=== PATIENT | male | born 1935 | race Hispanic/Latino ===

== ENCOUNTER 2017-05-26 10:50 | Inpatient (IN) | payer MEDICARE, BC ==
[2017-05-26] MEDS ORDERED: Ondansetron ODT 4 MG TAB ONE (11:22)
[2017-05-26] MEDS ORDERED: Acetaminophen 500 MG TAB ONE (11:56)
[2017-05-26 12:35] LABS: Bilirubin Negative (Negative); Blood, Urine Small (Negative); Clarity Clear (Clear); Glucose, Urine (Dipstick) 100 mg/dL (Negative); Leukocyte Negative (Negative); Nitrite Negative (Negative); Protein, Urine (Dipstick) Negative (Neg-Trace); Specific Gravity, Urine 1.025 (1.005-1.030); Urobilinogen 0.2 mg/dL (0.2-1.0); pH, Urine 5.5 (5.0-9.0)
[2017-05-26 12:39] LABS: #Basophils 0.1 thou/uL (0.0-0.2); #Eosinphils 0.3 thou/uL (0.0-0.7); #Lymphocytes 2.2 thou/uL (1.20-3.40); #Neutrophils 14.2 thou/uL (1.40-6.50); %Basophils 0.7 % (0.0-1.0); %Eosinophils 1.6 % (0.0-10.0); %Lymphocytes 12.2 % (21.0-51.0); %Monocytes 5.6 % (0.0-10.0); Hemoglobin 15.1 g/dL (14.0-18.0); Mean Corpuscular HGB CONC 34.3 g/dL (32.0-36.0); Mean Corpuscular Hemoglobin 30.9 pg (27.0-31.0); Mean Platelet Volume 6.6 fL (7.4-10.4); Platelet Count 213 thou/uL (130-400); RBC Distribution Width 11.4 % (11.5-14.5); Red Blood Cell (RBC) Count 4.89 mill/uL (4.70-6.10); White Blood Cell (WBC) Count 17.7 thou/uL (4.8-10.8)
[2017-05-26 12:44] LABS: RBC/HPF 0-3 HPF (0-3); Squamous Epithelial 0-3 HPF (0-3); WBC/HPF 0-3 HPF (0-3)
[2017-05-26 12:52] LABS: ALT (SGPT) 23 U/L (8-55); AST (SGOT) 21 U/L (5-34); Albumin 4.1 g/dL (3.4-4.8); Alkaline Phosphatase 59 U/L (40-150); Anion Gap 16 mmol/L (10-20); BUN (Urea Nitrogen) 17 mg/dL (8.4-25.7); Bilirubin, Total 0.8 mg/dL (0.2-1.2); Calc. Creatinine Clearance 0 mL/min (70-130); Calcium 9.3 mg/dL (7.8-10.44); Carbon Dioxide 22 mmol/L (23-31); Chloride 103 mmol/L (98-107); Estimated GFR-MDRD Greater than 90; Globulin 2.9 g/dL (2.4-3.5); Glucose 167 mg/dL (83-110); Lipase 48 U/L (8-78); Potassium 4.6 mmol/L (3.5-5.1); Sodium 136 mmol/L (136-145)
[2017-05-26] MEDS ORDERED: Meropenem 1 GM VIAL ONE (13:45)
[2017-05-26] MEDS ORDERED: Sodium Chloride 0.9% 100 ML ONE (13:46)
--- NOTE | 2017-05-26 14:07 | RAD ---
TWO VIEW CHEST SERIES: INDICATION: Fever. FINDINGS: There is mild elevation of the left hemidiaphragm. The lungs are clear. Cardiac silhouette is withi n normal limits of side. Partially imaged right shoulder hardware is seen. IMPRESSION: 1. Elevated left hemidiaphragm. 2. No lobar consolidation. POS: H
[2017-05-26] MEDS ORDERED: hydrALAZINE 20 MG/ML VIAL SLOW IVP PRN (15:48)
[2017-05-26] MEDS ORDERED: traMADol HCl 50 MG TAB PO PRN (15:48)
[2017-05-26] MEDS ORDERED: Acetaminophen 325 MG TAB PO PRN (15:48)
[2017-05-26] MEDS ORDERED: Ondansetron HCl/PF 4 MG/2 ML Vial IVP PRN ×2 (15:48)
[2017-05-26] MEDS ORDERED: Loratadine 10 MG TAB PO PRN (15:48)
[2017-05-26] MEDS ORDERED: Nitroglycerin 0.4 MG TAB (25 Tab Bottle) SL PRN (15:48)
[2017-05-26] MEDS ORDERED: HYDROcodone/Acetaminophen 5/325 mg Tablet PO PRN (15:48)
[2017-05-26] MEDS ORDERED: cloNIDine 0.1 MG TAB PO PRN (15:48)
[2017-05-26] MEDS ORDERED: Benzonatate 100 MG CAP PO PRN (15:48)
[2017-05-26] MEDS ORDERED: Diabetic Tussin 200 MG/10 ML UDCUP PO PRN (15:48)
[2017-05-26] MEDS ORDERED: HumaLOG 300 UNITS/3 ML VIAL SC PRN ×2 (15:50)
[2017-05-26] MEDS ORDERED: Dextrose 50% Abboject 50 ML SYRINGE SLOW IVP PRN (15:50)
[2017-05-26] MEDS ORDERED: Dextrose 5% in Water 1,000 ML IV PRN (15:50)
--- NOTE | 2017-05-26 17:36 | HP ---
PRIMARY CARE PHYSICIAN: Pato Mayes M.D. CHIEF COMPLAINT: Diarrhea and body aches. HISTORY OF PRESENT ILLNESS: Mr. Saavedra is a very pleasant 81-year-old male with past medical history of diabetes, hypertension, and dyslipidemia who presented to [facility] with above-mentioned complaints. History is mainly obtained by the patient himself, who was a little bit of a poor historian because he is very hard of hearing. Case has been discussed with admitting ER physician, Dr. Miguel and electronic medical records have been reviewed. According to Mr. Saavedra, he was seen by his primary care physician about 1 week ago for complaints of b javan aches and hands and feet being cold. He was prescribed some nasal spray and treatment for "flu." It does not however seem that he was prescribed Tamiflu. He started to feel worse and also has bee n having excessive bouts of diarrhea about 8-9 per day for the last 2 days. He feels hot and flushed , but did not measure his temperature. He denies having any abdominal cramps or blood in the stools. He had one episode of bright red blood in the toilet paper. Otherwise, he denies any shortness of breath or cough. He has no sick contacts. He denies any dysuria, frequency or urgency. He denies a ny swelling of his joints or legs. Denies any nausea or vomiting. Upon presentation to the emergency room, his blood pressure was 135/87 and he was somewhat tachycardi c with pulse of 118. His initial examination revealed leukocytosis with WBCs of 17.7 with 80% neutro phils. Rest of the initial workup was unremarkable except for lactic acid being elevated to 2.8. Na sondra swab for influenza was negative. Chest x-ray was unremarkable. Because of the ongoing complaint s of diarrhea, he underwent stool studies which are pending at this time. He was prescribed empiric antibiotic in the form of meropenem and was transferred here to be admitted for further evaluation an [facility]. PAST MEDICAL HISTORY: 1. Diabetes mellitus. 2. Hypertension. 3. Dyslipidemia. 4. BPH. 5. Obesity. PAST SURGICAL HISTORY: 1. Right knee surgery. 2. Right rotator cuff repair. 3. Right shoulder arthroplasty. 4. Prostatectomy and TURP. PAST PSYCHIATRIC HISTORY: None. SOCIAL HISTORY: He lives by himself, but family lives close by. He is retired. No history of drug, tobacco or alcohol abuse. FAMILY HISTORY: No significant family history of premature coronary artery disease, stroke or cancer . REVIEW OF SYSTEMS: The following complete review of systems was negative, unless otherwise mentioned in the HPI or below: Constitutional: Weight loss or gain, ability to conduct usual activities. Skin: Rash, itching. Eyes: Double vision, pain. ENT/Mouth: Nose bleeding, neck stiffness, pain, tenderness. Cardiovascular: Palpitations, dyspnea on exertion, orthopnea. Respiratory: Shortness of breath, wheezing, cough, hemoptysis, fever or night sweats. Gastrointestinal: Poor appetite, abdominal pain, heartburn, nausea, vomiting, constipation, or diarr hea. Genitourinary: Urgency, frequency, dysuria, nocturia. Musculoskeletal: Pain, swelling. Neurologic/Psychiatric: Anxiety, depression. Allergy/Immunologic: Skin rash, bleeding tendency. ALLERGIES: CLARITHROMYCIN. CURRENT MEDICATIONS: Reviewed with the patient. Full list is not available at this time. LABORATORY DATA AND IMAGING DATA: On examination, CBC shows WBC 17.7 with 80% neutrophils, hemoglobi n 15.1, and platelet count 213. Serum chemistries show bicarbonate 22 and blood sugar 167. Lactic a елена 2.8, otherwise unremarkable. Lipase is normal at 48. Urinalysis showed trace ketones and small blood and glucosuria, otherwise unremarkable. Chest x-ray by my review has no evidence to suggest an y infiltrate, edema or effusion. PHYSICAL EXAMINATION: VITAL SIGNS: Upon presentation to ER include blood pressure 135/87, pulse of 118, 95% saturation on room air, respirations 16, temperature 98.7, but his rectal temperature as mentioned in the emergency room was 100.9. GENERAL: On examination, in no acute distress, awake, alert, oriented x3. He is sitting up on the s christos of the bed and very pleasant and very talkative. He is hard of hearing. HEENT: Mucous membranes are moist and pink. No oropharyngeal exudate or erythema. Head is normocep halic, atraumatic. Pupils are equal and reactive to light and accommodation. Extraocular movements intact. NECK: Supple without any lymphadenopathy, JVD or bruit. CHEST: Clear to auscultation without any wheezing, rales or rhonchi. CARDIOVASCULAR: Rhythm is regular without any murmur, rubs or gallops. ABDOMEN: Obese, soft, nontender, nondistended. No hepatosplenomegaly. No guarding, rebound or rigi dity. EXTREMITIES: Free of any cyanosis, clubbing, or edema. SKIN: Free of any rashes or bruises. Feels warm and dry to touch. PSYCHIATRIC: Normal affect. NEUROLOGIC: No focal deficits. IMPRESSION AND PLAN: 1. Systemic inflammatory response syndrome criteria. The patient appears nontoxic. Most likely the scenario is of viral gastroenteritis. We will continue empiric antibiotic and obtain CT scan of the abdomen and pelvis to further rule out any evidence of colitis likely bacterial. Continue to monito r symptomatology and recheck CBC in the morning. We will also continue to follow the results of the blood culture and also check a respiratory viral panel with PCR. Continue meropenem and IV fluids an d supportive care for now. He is hemodynamically stable and will be admitted to the medical floor. 2. Lactic acidosis, once again can be secondary to dehydration and diarrhea. 3. Diarrhea. Stool studies have been ordered. We will follow the results. Continue intravenous fl uids for now. 4. Diabetes mellitus type 2. We will restart his Lantus and put him on insulin sliding scale with f requent Accu-Cheks. 5. Hypertension. His blood pressure is well controlled currently. We will restart home medications once reconciled. 6. Dyslipidemia. Restart statin. 7. CODE STATUS: FULL CODE. 8. Deep venous thrombosis and gastrointestinal prophylaxis. DISPOSITION: Mr. Saavedra is being admitted with SIRS criteria and diarrhea to rule out sepsis. Further management will depend upon his clinical course. He is currently hemodynamically stable.
[2017-05-26 17:39] VITALS: BMI 33.2
[2017-05-26 17:47] LABS: Lactic Acid 1.6 mmol/L (0.5-2.2)
[2017-05-26] MEDS ORDERED: Silodosin 8 MG CAP PO SCH (21:00)
[2017-05-26] MEDS ORDERED: Non-Formulary Item 1 EACH (Insulin Glargine,Hum.Rec.Anlog [Lantus] 10 UNITS) SQ SCH (21:00)
[2017-05-26] MEDS ORDERED: Meropenem 1 GM in Sodium Chloride 0.9% 100 ML IVPB SCH (22:00)
[2017-05-26] MEDS: Sodium Chloride 0.9% 1,000 ML IV SCH (22:19)
[2017-05-26] MEDS: Metoprolol Tartrate 25 MG TAB PO SCH (22:19)
[2017-05-26] MEDS: Famotidine 20 MG TAB PO SCH (22:19)
[2017-05-26] MEDS: Insulin Detemir 100 UNITS/ML 10 UNITS in Pre-Filled Syringe 1 EACH SC SCH (22:20)
[2017-05-26] MEDS: Meropenem 1 GM in Sterile Water 20 ML SLOW IVP SCH (22:20)
[2017-05-26] MEDS: Azelastine 137 MCG/Spray 30 ML NS SCH (22:34)
[2017-05-27] MEDS: Sodium Chloride 0.9% 1,000 ML IV SCH (06:02)
[2017-05-27] MEDS: Meropenem 1 GM in Sterile Water 20 ML SLOW IVP SCH (06:02)
[2017-05-27 06:11] LABS: #Eosinphils 0.4 thou/uL (0.0-0.7); #Lymphocytes 3.7 thou/uL (1.20-3.40); #Monocytes 0.8 thou/uL (0.11-0.59); #Neutrophils 5.9 thou/uL (1.40-6.50); %Basophils 0.2 % (0.0-1.0); %Eosinophils 3.7 % (0.0-10.0); %Lymphocytes 34.1 % (21.0-51.0); %Monocytes 7.6 % (0.0-10.0); %Neutrophils 54.6 % (42.0-75.0); Hemoglobin 12.6 g/dL (14.0-18.0); Mean Corpuscular HGB CONC 33.1 g/dL (32.0-36.0); Mean Corpuscular Hemoglobin 31.9 pg (27.0-31.0); Mean Corpuscular Volume 96.4 fl (80.0-94.0); Platelet Count 196 thou/uL (130-400); RBC Distribution Width 11.8 % (11.5-14.5); Red Blood Cell (RBC) Count 3.95 mill/uL (4.70-6.10); White Blood Cell (WBC) Count 10.8 thou/uL (4.8-10.8)
[2017-05-27 06:22] LABS: Anion Gap 10 mmol/L (10-20); BUN (Urea Nitrogen) 10 mg/dL (8.4-25.7); Calc. Creatinine Clearance 125 mL/min (70-130); Calcium 8.6 mg/dL (7.8-10.44); Carbon Dioxide 25 mmol/L (23-31); Chloride 108 mmol/L (98-107); Estimated GFR-MDRD Greater than 90; Glucose 155 mg/dL (83-110); Potassium 4.1 mmol/L (3.5-5.1); Sodium 139 mmol/L (136-145)
[2017-05-27] MEDS ORDERED: Venlafaxine HCl XR 150 MG CAP PO SCH (09:00)
[2017-05-27] MEDS ORDERED: Atorvastatin Calcium 20 MG TAB PO SCH (09:00)
[2017-05-27] MEDS ORDERED: Enoxaparin Sodium 40 MG/0.4 ML SYRINGE SC SCH (09:00)
[2017-05-27] MEDS ORDERED: Lisinopril 2.5 MG TAB PO SCH (09:00)
[2017-05-27] MEDS ORDERED: Saccharomyces boulardii 250 MG CAP PO SCH (09:00)
[2017-05-27] MEDS ORDERED: Prevnar 13-Val Conj/PF 0.5 ML SYRINGE IM ONE (09:00)
[2017-05-27] MEDS: Metoprolol Tartrate 25 MG TAB PO SCH (11:15)
[2017-05-27] MEDS: Famotidine 20 MG TAB PO SCH (11:16)
[2017-05-27] MEDS: Azelastine 137 MCG/Spray 30 ML NS SCH (11:16)
[2017-05-27] MEDS: Insulin Detemir 100 UNITS/ML 10 UNITS in Pre-Filled Syringe 1 EACH SC SCH (11:16)
[2017-05-27 12:31] VITALS: BP 115/73; TEMP 98
--- NOTE | 2017-05-27 12:46 | CT ---
CT ABDOMEN AND PELVIS WITH IV CONTRAST: HISTORY: Hematuria. COMPARISON: CT abdomen and pelvis from July 2012. TECHNIQUE: Multiple axial tomograms obtained through the abdomen and pelvis with IV enhancement. Oral contrast was given. FINDINGS: Images through the lung bases show streaky atelectasis in the left lung base. The liver, spleen, and pancreas are unremarkable. There is a focal density along the wall of the gallbladder and the fundus of the gallbladder, measuri ng in the 5 mm range. This could potentially represent a small polyp or a gallstones. Recommend salvador elation with gallbladder ultrasound. Adrenal glands are normal. Review of the kidneys reveals small bilateral renal cysts. A 0.8 cm cyst in the mid left renal naima x. There is a 1.8 cm cyst, inferior right renal cortex. No evidence of hydronephrosis. No evidence of urinary tract calculus. The ureters are normal in appearance. The urinary bladder is unremarkab le. No CT explanation for the hematuria noted. Small bowel loops appear normal. The colon is unremarkable. The aorta is of normal caliber. There are nonspecific periaortic lymph nodes. These paraaortic lymph nodes are increased in number a nd some are increased in size. There is an aortocaval lymph node, which measures up to 1.7 cm. Bernardo sherley, when compared to the exam of 2012, similar nonspecific lymph nodes were present at that time, an d this aortocaval lymph node was also present at that time. Anterior wedging of the L2 vertebra has occurred since the prior exam. IMPRESSION: 1. Bilateral renal cystic lesions, as described above. No evidence of renal mass or urinary tract c alculus. 2. Small focal density along the wall of the gallbladder, in the gallbladder fundus. Polyp versus s mall stone. Recommend correlation with gallbladder ultrasound. 3. Streaky atelectasis or infiltrate in the left posterior lung base. There is a calcified left shama r lymph node. 4. Nonspecific periaortic lymph nodes, which have a similar appearance to the prior study. POS: MARIJA
--- NOTE | 2017-05-27 22:35 | DIS ---
DATE OF ADMISSION: 05/26/2017 DATE OF DISCHARGE: 05/27/2017 DISCHARGE DISPOSITION: Home. PRIMARY CARE PHYSICIAN: Dr. Pato Mayes. CONSULTATIONS: None. PROCEDURES DONE: Include CT scan of the abdomen and pelvis, which is unremarkable except for a small renal cysts bilaterally and a small gallbladder stone which is nonobstructing. DISCHARGE DIAGNOSES: 1. Vital gastroenteritis versus inflammatory bowel disease. 2. Chronic diarrhea. 3. Systemic inflammatory response syndrome with leukocytosis without clear evidence of infection. 4. Diabetes mellitus. 5. Hypertension. 6. Dyslipidemia. 7. Benign prostatic hypertrophy. 8. Obesity. DISCHARGE MEDICATIONS: Include levofloxacin 500 mg p.o. daily for 5 days, metronidazole 500 mg p.o. t.i.d. for 5 days and Florastor 250 mg p.o. daily for 10 days. Resume home medications as per my HPI dictated yesterday reviewed with the patient. Mupirocin ointment, Lantus 10 units b.i.d., Effexor 1 50 mg daily, metoprolol tartrate 25 b.i.d., aspirin 81 mg daily, Rapaflo 8 mg daily, atorvastatin 20 mg daily, lisinopril 2.5 mg daily, metformin 1000 mg p.o. b.i.d. HISTORY OF PRESENTING ILLNESS: Mr. Saavedra is a 81-year-old, very pleasant male with past med ical history of hypertension, diabetes who presented to the [facility] with compl aints of generalized body aches and diarrhea. He was found to have leukocytosis and low grade fever and was admitted with SIRS criteria to rule out sepsis. He was empirically treated with meropenem wh ich was continued along with IV fluids. Please see admission history and physical for further detail s. He was hemodynamically stable and was admitted to medical floor. HOSPITAL COURSE: The patient was continued on IV fluids and meropenem and a CT scan was obtained. T he CT scan did not show any active colitis or any ischemic bowel. The patient at this time told me t hat his diarrhea has been ongoing for months. He had a colonoscopy done by Dr. Reina at the GI clinic about 1 year ago which was clear. His symptoms are not helped always by Imodium. His C. diff was c hecked in the hospital which was negative. He did have an elevated fecal leukocytes, but other than that, the rest of his workup was unremarkable. His respiratory viral panel was also checked which wa s negative for all the common viruses. His leukocytosis improved as well. At this time, he was disc harged back home to follow up with primary care physician. I have requested him to follow with GI raffi benavides as his symptoms suggest IBS versus other pathology other than active bacterial gastroenteritis. He was empirically continued on antibiotics as above. PHYSICAL EXAMINATION: On the day of discharge, VITAL SIGNS: Temperature 98.0, pulse 74, respirations 18, saturating 93% on room air, blood pressure 115/73. No acute distress, sitting up in bed. CHEST: Clear to auscultation bilaterally. CARDIOVASCULAR: Rate and rhythm is regular. NEUROLOGIC: Unremarkable. LABORATORY EXAMINATION: C. diff negative, influenza negative. Stool WBCs elevated. Campylobacter a nd Shigella toxin negative. WBC is 10.8 which was 17.7 upon presentation with neutrophils of 54% whi ch was 80% on admission. Lactic acid 1.6, which was 2.8 on admission. Serum chemistries unremarkabl e. Urinalysis unremarkable.
== END 2017-05-27 13:55 | disposition home or self-care (01) | DRG 392 ==
LOC: SCSER 10:50 → SURG A 16:53
PROVIDERS: ADMIT Internal Medicine; ATTEND Internal Medicine
DX: A08.4 Viral intestinal infection, unspecified (principal); E87.2 Acidosis; E11.9 Type 2 diabetes mellitus without complications; R65.10 Systemic inflammatory response syndrome (SIRS) of non-infectious origin without acute organ dysfunction; K80.20 Calculus of gallbladder without cholecystitis without obstruction; I10 Essential (primary) hypertension; E78.5 Hyperlipidemia, unspecified; N40.0 Benign prostatic hyperplasia without lower urinary tract symptoms; E66.9 Obesity, unspecified; Z68.33 Body mass index [BMI] 33.0-33.9, adult; Z96.611 Presence of right artificial shoulder joint; Z88.1 Allergy status to other antibiotic agents
CPT/HCPCS: 36415; 36416; 71046; 74177; 80048; 80053; 80061; 81001; 81003; 81015; 83036; 83605; 83630; 83690; 85025; 87040; 87045; 87046; 87324; 87449; 87633; 87804; 87899; 96361; 96365; 99214; A4216; G0463; J1650; J1815; J2185; J7050; Q0162

== ENCOUNTER 2017-06-11 07:31 | Outpatient (CLI) | payer MEDICARE, BC ==
--- NOTE | 2017-06-11 10:16 | ULT ---
RIGHT UPPER QUADRANT ULTRASOUND: Date: 06/11/17 INDICATION: Abnormal gallbladder on CT. COMPARISON: CT of the abdomen and pelvis dated 05/27/17. FINDINGS: There is diffuse fatty infiltration of the liver. Small stones and gallbladder sludge is present with in the gallbladder. No gallbladder wall thickening or pericholecystic fluid is evident. No sonographi c Kidd's sign is reported. Common bile duct measured 4.5 mm. Visualized aspects of the pancreas are unremarkable. The right kidney measures 11.4 x 6.3 x 5.3 cm. There is a 1.8 cm cyst involving the inferior pole of the right kidney on the comparison CT that is not well evaluated on today's exam. IMPRESSION: 1. Fatty liver. 2. Cholelithiasis and gallbladder sludge without sonographic evidence of acute cholecystitis. 3. Patient's known right renal cyst is not well seen on the current right upper quadrant ultrasound exam performed today. POS: TPC
== END 2017-06-11 07:32 | disposition home or self-care (01) ==
LOC: ULT 07:31
PROVIDERS: ATTEND Internal Medicine Gastroenterology
DX: R19.4 Change in bowel habit (principal); R93.2 Abnormal findings on diagnostic imaging of liver and biliary tract; K76.0 Fatty (change of) liver, not elsewhere classified; K80.20 Calculus of gallbladder without cholecystitis without obstruction; N28.1 Cyst of kidney, acquired
CPT/HCPCS: 76705

== ENCOUNTER 2017-07-07 15:06 | Emergency (ER) | payer MEDICARE, BC | END 2017-07-07 16:52 | disposition home or self-care (01) | LOC: SCSER 15:06 | DX: H57.12 Ocular pain, left eye (principal); H35.89 Other specified retinal disorders; Z98.42 Cataract extraction status, left eye; E11.9 Type 2 diabetes mellitus without complications; E78.5 Hyperlipidemia, unspecified; I10 Essential (primary) hypertension; G89.18 Other acute postprocedural pain | CPT/HCPCS: 99283 ==

== ENCOUNTER 2018-04-06 15:35 | Inpatient (IN) | payer MEDICARE, BC ==
[2018-04-06] MEDS ORDERED: Ondansetron PF 4 MG/2 ML Vial ONE ×2 (16:02→17:38)
[2018-04-06 16:19] LABS: Hemoglobin 14.7 g/dL (14.0-18.0); Mean Corpuscular HGB CONC 33.6 g/dL (32.0-36.0); Mean Corpuscular Hemoglobin 29.5 pg (27.0-31.0); Mean Corpuscular Volume 87.7 fL (78.0-98.0); Platelet Count 178 thou/uL (130-400); RBC Distribution Width 11.6 % (11.5-14.5); White Blood Cell (WBC) Count 23.1 thou/uL (4.8-10.8)
[2018-04-06 16:29] LABS: Eosinophils 2 % (0-10); Lymphocytes 15 % (21-51); MDiff Complete? YES; Monocytes 5 % (0-10); Neutrophil 77 % (42-75); PLT Morphology Comment Appears Adequate; RBC Morphology Normal
[2018-04-06 16:34] LABS: ALT (SGPT) 22 U/L (8-55); AST (SGOT) 16 U/L (5-34); Alkaline Phosphatase 59 U/L (40-150); Anion Gap 17 mmol/L (10-20); BUN (Urea Nitrogen) 16 mg/dL (8.4-25.7); Bilirubin, Total 0.6 mg/dL (0.2-1.2); Calc. Creatinine Clearance 0 mL/min (70-130); Calcium 9.4 mg/dL (7.8-10.44); Carbon Dioxide 21 mmol/L (23-31); Chloride 102 mmol/L (98-107); Estimated GFR-MDRD 77; Globulin 3.4 g/dL (2.4-3.5); Glucose 173 mg/dL (83-110); Lipase 132 U/L (8-78); Potassium 4.1 mmol/L (3.5-5.1); Protein, Total 7.4 g/dL (5.8-8.1); Sodium 136 mmol/L (136-145)
[2018-04-06] MEDS ORDERED: Morphine 4 MG/ML VIAL ONE (17:38)
[2018-04-06 17:54] LABS: Clarity Hazy (Clear); Specific Gravity, Urine 1.026 (1.002-1.036)
[2018-04-06 18:00] LABS: Bacteria/HPF 1+ HPF (None Seen); Squamous Epithelial None Seen HPF (0-3)
[2018-04-06] MEDS ORDERED: cefTRIAXone\\ROCEPHIN 2 GM VIAL ONE (18:17)
[2018-04-06] MEDS ORDERED: Sodium Chloride 0.9% 100 ML ONE (18:17)
[2018-04-06] MEDS ORDERED: Lorazepam 2 MG/ML VIAL ONE (19:07)
[2018-04-06] MEDS ORDERED: Acetaminophen 325 MG TAB PO PRN (20:22)
[2018-04-06] MEDS ORDERED: Ketorolac Tromethamine 30 MG/ML VIAL IVP SCH (21:45)
[2018-04-06 21:53] VITALS: BMI 36.6
[2018-04-06] MEDS ORDERED: Ondansetron PF 4 MG/2 ML Vial IVP PRN (22:28)
[2018-04-06] MEDS ORDERED: Ondansetron ODT 4 MG TAB PO PRN (22:28)
[2018-04-06] MEDS ORDERED: HumaLOG 300 UNITS/3 ML VIAL SC PRN (22:34)
[2018-04-06] MEDS ORDERED: Dextrose 5% in Water 1,000 ML IV PRN (22:34)
[2018-04-06] MEDS ORDERED: Dextrose 50% Abboject 50 ML SYRINGE SLOW IVP PRN (22:34)
[2018-04-06] MEDS: Sodium Chloride 0.9% 1,000 ML IV SCH (23:08)
[2018-04-07] MEDS: Simethicone Chewable 80 MG TAB PO PRN ×2 (01:03→18:26)
--- NOTE | 2018-04-07 03:05 | HP ---
CHIEF COMPLAINT: Unable to urinate. HISTORY OF PRESENT ILLNESS: This is an 82-year-old male with a past medical history of diabetes mellitus type 2, hypertension, hyperlipidemia, who is presenting with chief complaint of penile pain, nausea, and difficulty with urination. Patient states that he has been having difficulty with urination, so he saw Dr. Solomon Souza, who was the urologist that saw him in the office and started him on Cipro and some "blue pill", which patient does not know the name of. Patient states that he took the Cipro and as he was supposed to take, but he started having a lot of spasms in his penile area and it was very painful and was also having nausea. Since his urologist, Dr. Souza told him that he can be able to come in the hospital if he starts having severe pain and urinary spasms, patient came to the hospital to be evaluated. Patient has a Felix in place and the Felix is draining bluish greenish urine. Patient denies any fever, chills, vomiting, chest pain, palpitation, abdominal pain, but endorses bladder spasms and bloating of the abdomen. REVIEW OF SYSTEMS: Positive for bladder spasms, difficulty with urination, and bloating of abdomen, otherwise, as documented in the HPI. All other systems are reviewed and are negative. PAST MEDICAL HISTORY: Diabetes mellitus, type 2; hyperlipidemia; hypertension; BPH. PAST SURGICAL HISTORY: Right knee surgery, right rotator cuff repair, right shoulder arthroplasty, prostatectomy, and TURP. PSYCHIATRIC HISTORY: No psych history noted. SOCIAL HISTORY: Patient lives by himself, but family lives close by. Patient states that he is retired. Patient denies any illicit drugs. Patient denies tobacco use and patient denies alcohol use. FAMILY HISTORY: Reviewed and noncontributory to this visit. CURRENT MEDICATIONS: Patient takes, 1. Azelastine nasal spray. 2. Cetirizine 10 mg. 3. Ciprofloxacin 500 mg b.i.d. 4. Metformin 1000 mg b.i.d. 5. Aspirin 81 mg. 6. Atorvastatin 20 mg. 7. Insulin glargine 20 units b.i.d. 8. Lisinopril 2.5 mg. 9. Metoprolol 25 mg b.i.d. 10. Silodosin 8 mg p.o. 11. Januvia 100 mg daily. PHYSICAL EXAMINATION: VITAL SIGNS: Blood pressure 156/69, heart rate is 99, respiratory rate is 20, O2 sat is 93. GENERAL: Patient is alert, oriented x3, not in acute distress. Patient is talkative. HEENT: Normocephalic, atraumatic. Pupils are equal, round, and react to light. Extraocular movements are intact. No scleral icterus. No conjunctival pallor. Mucous membranes are moist. NECK: There is no JVD. Trachea is midline. Full range of motion, supple. LUNGS: Clear to auscultation bilaterally. No wheezing, no rales, no rhonchi is appreciated. CARDIOVASCULAR: Positive S1, S2. Regular rate and rhythm. No murmurs, no rubs appreciated. ABDOMEN: Soft, nontender, nondistended, obese abdomen, positive bowel sounds in all quadrants. GENITOURINARY: Patient do have a Felix catheter in his penis. Per patient, there is no tenderness at the testes bilaterally on palpation, patient do have some pain in the shaft of the penis. There is no erythema, no discharge noted. There is a Felix in place, draining greenish urine. EXTREMITIES: Patient has 5/5 upper extremity strength and 5/5 lower extremity strength. No edema noted. Patient has good pulses bilaterally at the upper and lower extremities. PSYCHIATRIC: Normal affect, alert, oriented x3. LABORATORY DATA: WBC is 23.1, hemoglobin 14.7, hematocrit 43.9, RDW is 11.6, MCV is 87.7, platelet count is 178. Coagulation: PT is 21.2, INR is 1.9, PTT 29.5. Chemistry: Sodium 136, potassium is 4.1, chloride is 102, carbon dioxide of 21, anion gap of 17, BUN is 16, creatinine is 0.94, glucose is 173. Due to the color of the urine, the urinalysis, due to the color interference, there was an inability to perform the test. ASSESSMENT AND PLAN: This is an 82-year-old male with past medical history of hypertension, being admitted for: 1. Penile and urinary retention. At this point, patient is having difficulty with urination. Patient has a Felix in place. Patient complaining of penile spasms and bladder spasms. We will give patient p.r.n. pain medications. We will give patient IV hydration. We will start patient on antibiotics. We will get a repeat UA. We have consulted Dr. Solomon Souza, who sees the patient in the outpatient setting. We will continue to follow with Dr. Souza's recommendation. 2. History of BPH. At this point, the patient has a Felix in place. Patient is draining urine and does not seem to have retention at this time, we will continue current management. 3. Diabetes mellitus, type 2. We will continue patient on insulin sliding scale. We will monitor the patient's blood sugar closely. 4. Hypertension. We will continue the patient on blood pressure medications and we will monitor the patient's BP closely and if need be, we are going to give patient p.r.n. blood pressure medications. 5. Hyperlipidemia. We will continue patient's home medications. 6. Deep venous thrombosis and gastrointestinal prophylaxis. MTDD
[2018-04-07] MEDS ORDERED: Ketorolac Tromethamine 30 MG/ML VIAL IVP SCH (05:00)
[2018-04-07 05:39] LABS: Anion Gap 11 mmol/L (10-20); BUN (Urea Nitrogen) 18 mg/dL (8.4-25.7); Calc. Creatinine Clearance 108 mL/min (70-130); Carbon Dioxide 23 mmol/L (23-31); Chloride 105 mmol/L (98-107); Estimated GFR-MDRD 88; Glucose 197 mg/dL (83-110); Potassium 4.1 mmol/L (3.5-5.1); Sodium 135 mmol/L (136-145)
[2018-04-07 05:41] LABS: #Eosinphils 0.1 thou/uL (0.0-0.7); #Lymphocytes 1.9 thou/uL (1.20-3.40); #Monocytes 0.4 thou/uL (0.11-0.59); #Neutrophils 8.8 thou/uL (1.40-6.50); %Basophils 0.1 % (0.0-1.0); %Eosinophils 0.8 % (0.0-10.0); %Lymphocytes 16.5 % (21.0-51.0); %Monocytes 3.7 % (0.0-10.0); %Neutrophils 78.9 % (42.0-75.0); Hemoglobin 13.1 g/dL (14.0-18.0); Mean Corpuscular HGB CONC 31.8 g/dL (32.0-36.0); Mean Corpuscular Hemoglobin 29.9 pg (27.0-31.0); Mean Corpuscular Volume 94.1 fL (78.0-98.0); Mean Platelet Volume 7.1 fL (7.4-10.4); Platelet Count 192 thou/uL (130-400); RBC Distribution Width 11.8 % (11.5-14.5); Red Blood Cell (RBC) Count 4.37 mill/uL (4.70-6.10); White Blood Cell (WBC) Count 11.2 thou/uL (4.8-10.8)
[2018-04-07] MEDS: HumaLOG 300 UNITS/3 ML VIAL SC PRN ×2 (06:11→12:37)
[2018-04-07] MEDS: Metoprolol Tartrate 25 MG TAB PO SCH ×2 (09:32→20:22)
[2018-04-07] MEDS: Floranex Packet PO SCH (09:32)
[2018-04-07] MEDS: Atorvastatin Calcium 20 MG TAB PO SCH (09:32)
[2018-04-07] MEDS: Alogliptin 25 MG TAB PO SCH (09:32)
[2018-04-07] MEDS: Lisinopril 2.5 MG TAB PO SCH (09:32)
[2018-04-07] MEDS: Heparin 5,000 UNITS/ML VIAL SC SCH ×2 (09:33→20:23)
[2018-04-07] MEDS: Insulin Glargine 20 UNITS in Pre-Filled Syringe 1 EACH SC SCH ×2 (09:34→20:19)
[2018-04-07] MEDS: Ketorolac Tromethamine 30 MG/ML VIAL IVP PRN ×3 (10:03→21:51)
[2018-04-07] MEDS: cefTRIAXone\\ROCEPHIN 1 GM in Sodium Chloride 0.9% 100 ML IVPB SCH (10:50)
[2018-04-07] MEDS: Sodium Chloride 0.9% 1,000 ML IV SCH (10:51)
[2018-04-07] MEDS: traMADol HCl 50 MG TAB PO PRN (12:37)
--- NOTE | 2018-04-07 16:14 | PDOC.EVN ---
Event Note - Event Note Event Note: Chart reviewed, patient seen. c/o bladder spasms, will trial Detrol. Also changed antibiotic to ceftriaxone given recent urine c/s result.
[2018-04-07] MEDS: Morphine 2 MG/ML SYRINGE SLOW IVP PRN ×2 (17:38→23:34)
[2018-04-07] MEDS: Silodosin 8 MG CAP PO SCH (20:22)
[2018-04-07] MEDS: TROSPIUM 20 MG TABLET PO SCH (20:35)
[2018-04-08] MEDS: traMADol HCl 50 MG TAB PO PRN (01:33)
[2018-04-08] MEDS: Sodium Chloride 0.9% 1,000 ML IV SCH ×2 (02:58→16:54)
[2018-04-08] MEDS: Ketorolac Tromethamine 30 MG/ML VIAL IVP PRN (03:49)
[2018-04-08] MEDS ORDERED: B & O PR SCH (04:00)
[2018-04-08] MEDS: Morphine 2 MG/ML SYRINGE SLOW IVP PRN (04:21)
[2018-04-08] MEDS: Lisinopril 2.5 MG TAB PO SCH (09:17)
[2018-04-08] MEDS: TROSPIUM 20 MG TABLET PO SCH ×2 (09:17→20:20)
[2018-04-08] MEDS: Atorvastatin Calcium 20 MG TAB PO SCH (09:17)
[2018-04-08] MEDS: Heparin 5,000 UNITS/ML VIAL SC SCH ×2 (09:17→20:19)
[2018-04-08] MEDS: Alogliptin 25 MG TAB PO SCH (09:17)
[2018-04-08] MEDS: Floranex Packet PO SCH (09:17)
[2018-04-08] MEDS: Metoprolol Tartrate 25 MG TAB PO SCH ×2 (09:17→20:20)
[2018-04-08] MEDS: Insulin Glargine 20 UNITS in Pre-Filled Syringe 1 EACH SC SCH ×2 (09:18→20:19)
[2018-04-08] MEDS: cefTRIAXone\\ROCEPHIN 1 GM in Sodium Chloride 0.9% 100 ML IVPB SCH (09:18)
[2018-04-08] MEDS: Sulfameth/Trimethoprim DS 800-160mg TAB PO SCH ×2 (09:18→20:20)
[2018-04-08 09:29] LABS: #Basophils 0.1 thou/uL (0.0-0.2); #Eosinphils 0.3 thou/uL (0.0-0.7); #Lymphocytes 2.1 thou/uL (1.20-3.40); #Monocytes 0.6 thou/uL (0.11-0.59); #Neutrophils 3.6 thou/uL (1.40-6.50); %Basophils 1.9 % (0.0-1.0); %Eosinophils 4.5 % (0.0-10.0); %Lymphocytes 30.7 % (21.0-51.0); %Monocytes 8.8 % (0.0-10.0); %Neutrophils 54.1 % (42.0-75.0); Hemoglobin 12.9 g/dL (14.0-18.0); Mean Corpuscular HGB CONC 33.3 g/dL (32.0-36.0); Mean Corpuscular Hemoglobin 30.8 pg (27.0-31.0); Mean Corpuscular Volume 92.5 fL (78.0-98.0); Mean Platelet Volume 7.1 fL (7.4-10.4); Platelet Count 196 thou/uL (130-400); RBC Distribution Width 11.7 % (11.5-14.5); Red Blood Cell (RBC) Count 4.18 mill/uL (4.70-6.10); White Blood Cell (WBC) Count 6.7 thou/uL (4.8-10.8)
[2018-04-08 09:45] LABS: Anion Gap 12 mmol/L (10-20); BUN (Urea Nitrogen) 14 mg/dL (8.4-25.7); Calc. Creatinine Clearance 118 mL/min (70-130); Calcium 8.2 mg/dL (7.8-10.44); Carbon Dioxide 21 mmol/L (23-31); Chloride 103 mmol/L (98-107); Estimated GFR-MDRD Greater than 90; Glucose 136 mg/dL (83-110); Sodium 132 mmol/L (136-145)
[2018-04-08] MEDS ORDERED: traMADol HCl 50 MG TAB PO PRN (11:15)
[2018-04-08] MEDS ORDERED: Acetaminophen/Codeine 30-300mg Tablet PO PRN (11:16)
--- NOTE | 2018-04-08 13:38 | PDOC.PN ---
- Subjective Encounter Start Date: 04/08/18 Encounter Start Time: 07:00 Pt seen for followup re: UTI. Reports bladder spasms have improved. Denies fevers. - Objective Resuscitation Status: Resuscitation Status FULL:Full Resuscitation MAR Reviewed: Yes Vital Signs & Weight: Vital Signs (12 hours) Temp Pulse Resp BP Pulse Ox 04/08/18 11:34 98 F 72 18 136/74 97 04/08/18 09:17 83 04/08/18 07:58 98 04/08/18 07:50 98.2 F 83 Weight Weight 241 lb I&O: 04/07/18 04/08/18 04/09/18 06:59 06:59 06:59 Intake Total 1090 2620 Output Total 309 361 5440 Balance 765 2320 -1000 Result Diagrams: 04/08/18 09:12 04/08/18 09:12 Additional Labs: Accuchecks 04/08/18 04/07/18 04/07/18 11:31 20:19 15:52 POC Glucose 128 H 163 H 157 H Labs reviewed by me Phys Exam - Physical Examination Obese HEENT: moist MMs Neck: supple Respiratory: clear to auscultation bilateral Cardiovascular: RRR Gastrointestinal: non-tender Neurological: moves all 4 limbs Psychiatric: normal affect Dx/Plan (1) UTI (urinary tract infection) Status: Acute Comment: E. coli UTI, continue ceftriaxone (2) DM2 (diabetes mellitus, type 2) Status: Chronic Comment: reasonably controlled, continue accuchecks, insulin sliding scale (3) HTN (hypertension) Code(s): I10 - ESSENTIAL (PRIMARY) HYPERTENSION Status: Chronic Comment: controlled (4) Dyslipidemia Code(s): E78.5 - HYPERLIPIDEMIA, UNSPECIFIED Status: Chronic Comment: continue statin - Plan * . Review of Systems - Review of Systems Cardiovascular: negative: chest pain, palpitations, orthopnea, paroxysmal nocturnal dyspnea, edema, light headedness Gastrointestinal: negative: Nausea, Vomiting, Abdominal Pain, Diarrhea, Constipation, Melena, Hematochezia Genitourinary: Retention (bladder spasms), Other - Medications/Allergies Allergies/Adverse Reactions: Allergies Allergy/AdvReac Type Severity Reaction Status Date / Time clarithromycin [From Biaxin] Allergy Verified 10/31/14 13:10 Medications: Current Medications Acetaminophen/Codeine Phosphate (Tylenol #3) 1 tab PO Q6H PRN PRN Reason: Pain 7-10 Last Admin: 04/08/18 11:28 Dose: 1 tab Acidophilus (Floranex) 1 gm PO DAILY PENDING SALE TO [facility] Last Admin: 04/08/18 09:17 Dose: 1 gm Alogliptin Benzoate (Alogliptin) 25 mg PO DAILY PENDING SALE TO [facility] Last Admin: 04/08/18 09:17 Dose: 25 mg Aspirin (Aspirin Chewable) 81 mg PO DAILY PENDING SALE TO [facility] Last Admin: 04/08/18 09:17 Dose: 81 mg Atorvastatin Calcium (Lipitor) 20 mg PO DAILY PENDING SALE TO [facility] Last Admin: 04/08/18 09:17 Dose: 20 mg Dextrose/Water (Dextrose 50%) 25 gm SLOW IVP PRN PRN PRN Reason: Hypoglycemia Glucagon (Glucagon) 1 mg IM PRN PRN PRN Reason: Hypoglycemia Heparin Sodium (Porcine) (Heparin) 5,000 units SC BID PENDING SALE TO [facility] Last Admin: 04/08/18 09:17 Dose: Not Given Sodium Chloride (Normal Saline 0.9%) 1,000 mls @ 70 mls/hr IV .[id number] PENDING SALE TO [facility] Last Admin: 04/08/18 02:58 Dose: 1,000 mls Dextrose/Water (D5w) 1,000 mls @ 0 mls/hr IV .Q0M PRN PRN Reason: Hypoglycemia Insulin Glargine 20 units/ (Miscellaneous Medication) 0.2 mls @ 0 mls/hr SC BID PENDING SALE TO [facility] Last Admin: 04/08/18 09:18 Dose: 0.2 mls Ceftriaxone Sodium 1 gm/ (Sodium Chloride) 100 mls @ 200 mls/hr IVPB 1000 PENDING SALE TO [facility] Last Admin: 04/08/18 09:18 Dose: 100 mls Insulin Human Lispro (Humalog) 0 units SC .MILD SLIDING SCALE PRN PRN Reason: Mild Correctional Scale Last Admin: 04/07/18 12:37 Dose: 2 unit Insulin Human Lispro (Humalog) 0 units SC .BEDTIME SLIDING SC PRN PRN Reason: Bedtime Correctional Scale Ketorolac Tromethamine (Toradol) 15 mg IVP Q6H PRN PRN Reason: Pain 4-7 Stop: 04/12/18 11:01 Last Admin: 04/08/18 03:49 Dose: 15 mg Lisinopril (Zestril) 2.5 mg PO DAILY PENDING SALE TO [facility] Last Admin: 04/08/18 09:17 Dose: 2.5 mg Metoprolol Tartrate (Lopressor) 25 mg PO BID PENDING SALE TO [facility] Last Admin: 04/08/18 09:17 Dose: 25 mg Morphine Sulfate (Morphine) 2 mg SLOW IVP Q6H PRN PRN Reason: Breakthrough Pain Last Admin: 04/08/18 04:21 Dose: 2 mg Ondansetron HCl (Zofran Odt) 4 mg PO Q6H PRN PRN Reason: Nausea/Vomiting Ondansetron HCl (Zofran) 4 mg IVP Q6H PRN PRN Reason: Nausea/Vomiting Silodosin (Rapaflo) 8 mg PO QPM PENDING SALE TO [facility] Last Admin: 04/07/18 20:22 Dose: 8 mg Simethicone (Mylicon Chewable) 80 mg PO PCHS PRN PRN Reason: Gas Pain Last Admin: 04/07/18 18:26 Dose: 80 mg Sodium Chloride (Flush - Normal Saline) 10 ml IVF Q12HR PENDING SALE TO [facility] Last Admin: 04/08/18 09:18 Dose: 10 ml Sodium Chloride (Flush - Normal Saline) 10 ml IVF PRN PRN PRN Reason: Saline Flush Tramadol HCl (Ultram) 50 mg PO Q6H PRN PRN Reason: Pain 4-7 Trimethoprim/Sulfamethoxazole (Bactrim Ds) 1 tab PO BID PENDING SALE TO [facility] Last Admin: 04/08/18 09:18 Dose: 1 tab Trospium (Trospium) 20 mg PO Q12HR PENDING SALE TO [facility] Last Admin: 04/08/18 09:17 Dose: 20 mg
--- NOTE | 2018-04-08 14:16 | CON ---
DATE OF SERVICE: 04/08/2018. HISTORY: This is an 82-year-old male I have taken care for a number of years. He has had occasional prostatitis, urinary tract infections. He had a laser transurethral resection of his prostate by Dr. Madrigal a number of years ago. He has had some problems with urgency and frequency s vidhi then. I saw him 3 days ago which will be Sunday in my office and he had a lot of lower urinary tract symptoms and abnormal urine. We placed him on Cipro for probable prostatitis/UTI and did a cul ture that culture has grown out. An E. coli that is resistant to Cipro, sensitive to cephalosporins at least a second and third generation cephalosporins as well as the Bactrim. He was admitted to the hospital, I think Sunday afternoon that be a day and a half ago which is not feeling well, lot of urgency, frequency, I think a low grade temperature. His white blood cell count was elevated at 23,0 00 yesterday, it was down to 11.2. His creatinine was normal. His urinalysis still shows 7-10 red c ells, 11-20 white cells, 1+ bacteria, which is about what showed in my office before I started the Ci pro when mentioned Cipro is resistant to it. He did have a Felix catheter placed in the emergency de partment. He says that as far as he knows, there was just hardly any urine in the bladder. It was p laced because of his urinary tract symptoms has still been bothered by the catheter, lot of discomfor t in the penis. His urine does not clear. He has had good urine output. He did receive a B&O suppo sitory a few hours ago, so I think the plan from that standpoint will be to leave the Felix in for an other maybe till after lunch and take it out once the B&O suppository . I think he is probably to be better without the catheter, although some burning and some frequency. Now, he is on the right antibiotics for at least a day and a half. I would think he probably nearing ready for discha rge tomorrow. I will start him on some Bactrim double strength today as this is an oral antibiotic t hat should cover this and as far as I know, he has no allergies to that. I will follow along with judy wall and see him again tomorrow.
[2018-04-08] MEDS: Simethicone Chewable 80 MG TAB PO PRN (16:52)
[2018-04-08] MEDS: Silodosin 8 MG CAP PO SCH (20:20)
[2018-04-08] MEDS ORDERED: Milk Of Magnesia 30 ML UDCUP PO PRN (20:20)
[2018-04-09] MEDS: Ketorolac Tromethamine 30 MG/ML VIAL IVP PRN (01:16)
[2018-04-09] MEDS: Simethicone Chewable 80 MG TAB PO PRN (01:16)
[2018-04-09 06:15] LABS: #Basophils 0.1 thou/uL (0.0-0.2); #Eosinphils 0.4 thou/uL (0.0-0.7); #Lymphocytes 2.7 thou/uL (1.20-3.40); #Monocytes 1.1 thou/uL (0.11-0.59); #Neutrophils 3.3 thou/uL (1.40-6.50); %Eosinophils 5.4 % (0.0-10.0); %Lymphocytes 35.5 % (21.0-51.0); %Monocytes 14.1 % (0.0-10.0); %Neutrophils 43.9 % (42.0-75.0); Hemoglobin 13.1 g/dL (14.0-18.0); Mean Corpuscular HGB CONC 31.9 g/dL (32.0-36.0); Mean Corpuscular Volume 94.1 fL (78.0-98.0); Mean Platelet Volume 7.1 fL (7.4-10.4); Platelet Count 181 thou/uL (130-400); RBC Distribution Width 11.8 % (11.5-14.5); Red Blood Cell (RBC) Count 4.35 mill/uL (4.70-6.10); White Blood Cell (WBC) Count 7.5 thou/uL (4.8-10.8)
[2018-04-09 06:26] LABS: Anion Gap 11 mmol/L (10-20); BUN (Urea Nitrogen) 10 mg/dL (8.4-25.7); Calc. Creatinine Clearance 117 mL/min (70-130); Calcium 8.5 mg/dL (7.8-10.44); Carbon Dioxide 21 mmol/L (23-31); Chloride 107 mmol/L (98-107); Estimated GFR-MDRD Greater than 90; Glucose 135 mg/dL (83-110); Sodium 135 mmol/L (136-145)
[2018-04-09] MEDS: Floranex Packet PO SCH (08:41)
[2018-04-09] MEDS: Lisinopril 2.5 MG TAB PO SCH (08:41)
[2018-04-09] MEDS: Atorvastatin Calcium 20 MG TAB PO SCH (08:41)
[2018-04-09] MEDS: TROSPIUM 20 MG TABLET PO SCH (08:42)
[2018-04-09] MEDS: Metoprolol Tartrate 25 MG TAB PO SCH (08:42)
[2018-04-09] MEDS: Insulin Glargine 20 UNITS in Pre-Filled Syringe 1 EACH SC SCH (08:42)
[2018-04-09] MEDS: Sulfameth/Trimethoprim DS 800-160mg TAB PO SCH (08:42)
[2018-04-09] MEDS: Alogliptin 25 MG TAB PO SCH (08:42)
[2018-04-09] MEDS: Sodium Chloride 0.9% 1,000 ML IV SCH (08:43)
[2018-04-09 08:47] VITALS: BP 164/78
[2018-04-09 09:23] VITALS: TEMP 97.8
[2018-04-09] MEDS: Heparin 5,000 UNITS/ML VIAL SC SCH (13:12)
[2018-04-09] MEDS: cefTRIAXone\\ROCEPHIN 1 GM in Sodium Chloride 0.9% 100 ML IVPB SCH (13:12)
--- NOTE | 2018-04-09 19:48 | DIS ---
DATE OF ADMISSION: 04/06/2018 DATE OF DISCHARGE: 04/09/2018 PRIMARY CARE PROVIDER: Pato Mayes M.D. DISCHARGE DIAGNOSES: 1. Urinary tract infection. 2. Urinary retention. 3. Bladder spasms. CONDITION OF PATIENT ON THE DAY OF DISCHARGE: Stable. I assessed Mr. Saavedra on the day of discharge. He denies any urinary retention, Felix catheter was removed on April 08, 2018. PHYSICAL EXAMINATION: VITAL SIGNS: Stable. HEART: S1 and S2 are heard, regular. LUNGS: Clear to auscultation bilaterally. CONSULTATIONS DURING THIS HOSPITALIZATION: Urology, Solomon Souza M.D. DISCHARGE MEDICATIONS: Aspirin 81 mg daily, atorvastatin 20 mg daily, azelastine one spray to each n jeanette 2 times a day as needed, cetirizine 10 mg daily, Lantus insulin 20 units 2 times a day, lisinopr il 2.5 mg daily, metformin 1000 mg 2 times a day, Uro-MP 1 capsule as needed, metoprolol tartrate 25 mg 2 times a day, silodosin 8 mg every evening, Januvia 100 mg daily, and Bactrim-DS 1 tablet 2 times a day as prescribed by Urology service. HOSPITAL COURSE: Mr. Saavedra is a pleasant 82-year-old gentleman who was admitted to [facility] on April 06, 2018, for urinary retention and urinary tract infection. Please refe r to Dr. Mendoza's history and physical note dated April 07, 2018 for further details. Urine cultu res are done from on April 05, 2018, grew Escherichia coli that was resistant to ampicillin, cipro floxacin, gentamicin, and levofloxacin, sensitive to amikacin, cefepime, cefoxitin, ceftazidime, ceft riaxone, meropenem, nitrofurantoin, Zosyn, tobramycin and Bactrim. He was initially treated with cef triaxone and subsequently switched over to Bactrim to complete the course at home. On the day of discharge, Mr. Saavedra has a white count of 7500, hemoglobin 13.1, platelet count 181,000. Sodium 135, potassium 4.0, and creatinine 0.78. His urinary retention and bladder spasms also resolved by the time of discharge. Many thanks for allowing me to participate in your patient's care. Please feel free to contact me wi th any questions or concerns. DISCHARGE DESTINATION: Home. TOTAL AMOUNT OF TIME SPENT COORDINATING THIS DISCHARGE: 32 minutes.
== END 2018-04-09 13:13 | disposition home or self-care (01) | DRG 690 ==
LOC: SCSER 15:35 → ONC 17:25
PROVIDERS: ADMIT Internal Medicine; ATTEND Internal Medicine
DX: N39.0 Urinary tract infection, site not specified (principal); R33.9 Retention of urine, unspecified; E11.9 Type 2 diabetes mellitus without complications; I10 Essential (primary) hypertension; E78.5 Hyperlipidemia, unspecified; N40.0 Benign prostatic hyperplasia without lower urinary tract symptoms; Z90.79 Acquired absence of other genital organ(s); Z79.899 Other long term (current) drug therapy; Z79.2 Long term (current) use of antibiotics; Z79.84 Long term (current) use of oral hypoglycemic drugs; Z79.82 Long term (current) use of aspirin; Z79.4 Long term (current) use of insulin; N48.89 Other specified disorders of penis; B96.20 Unspecified Escherichia coli [E. coli] as the cause of diseases classified elsewhere
CPT/HCPCS: 36415; 36416; 80048; 80053; 81001; 83605; 83690; 85025; 87040; 87077; 87086; 87186; J0696; J1644; J1885; J2001; J2060; J2270; J2405; J3370; J7050; S0020

== ENCOUNTER 2018-04-10 13:10 | Emergency (ER) | payer MEDICARE, BC ==
[2018-04-10 14:16] LABS: #Basophils 0.1 thou/uL (0.0-0.2); #Eosinphils 0.4 thou/uL (0.0-0.7); #Lymphocytes 3.8 thou/uL (1.20-3.40); #Monocytes 1.1 thou/uL (0.11-0.59); #Neutrophils 5.5 thou/uL (1.40-6.50); %Basophils 0.7 % (0.0-1.0); %Eosinophils 3.5 % (0.0-10.0); %Lymphocytes 34.8 % (21.0-51.0); %Monocytes 9.8 % (0.0-10.0); %Neutrophils 51.2 % (42.0-75.0); Mean Corpuscular HGB CONC 31.9 g/dL (32.0-36.0); Mean Corpuscular Hemoglobin 30.2 pg (27.0-31.0); Mean Corpuscular Volume 94.6 fL (78.0-98.0); Platelet Count 255 thou/uL (130-400); RBC Distribution Width 11.8 % (11.5-14.5); Red Blood Cell (RBC) Count 4.64 mill/uL (4.70-6.10); White Blood Cell (WBC) Count 10.8 thou/uL (4.8-10.8)
[2018-04-10 14:20] LABS: Bilirubin Small (Negative); Blood, Urine Negative (Negative); Clarity TURBID (Clear); Glucose, Urine (Dipstick) Negative (Negative); Leukocyte Small (Negative); Nitrite Negative (Negative); Protein, Urine (Dipstick) Trace mg/dL (Neg-Trace); Urobilinogen 0.2 mg/dL (0.2-1.0)
[2018-04-10 14:22] LABS: Bacteria/HPF None Seen HPF (None Seen)
[2018-04-10 14:29] LABS: Pathc Cast-AUWi Flag 5.66 (0-2.49)
[2018-04-10 14:49] LABS: Crystals/HPF 3+ URIC ACID HPF (Negative)
[2018-04-10 14:53] LABS: Hyaline Casts/LPF 0-3 HYALINE CAST LPF (0-3 Hyaline); Manual Microscopic Reviewed? No Path Casts Seen
== END 2018-04-10 18:32 | disposition home or self-care (01) ==
LOC: ERS 13:10
DX: K59.00 Constipation, unspecified (principal); E11.9 Type 2 diabetes mellitus without complications; E78.5 Hyperlipidemia, unspecified; I10 Essential (primary) hypertension
CPT/HCPCS: 36415; 51798; 81003; 81015; 85025

== ENCOUNTER 2018-04-11 19:34 | Emergency (ER) | payer MEDICARE, BC ==
[2018-04-11 19:56] LABS: Bilirubin Small (Negative); Blood, Urine Trace (Negative); Clarity Cloudy (Clear); Glucose, Urine (Dipstick) Negative (Negative); Leukocyte Small (Negative); Nitrite Negative (Negative); Protein, Urine (Dipstick) 30 mg/dL (Neg-Trace); Urobilinogen 0.2 mg/dL (0.2-1.0); pH, Urine 5.5 (5.0-9.0)
[2018-04-11 19:57] LABS: Specific Gravity, Urine 1.033 (1.002-1.036)
[2018-04-11 19:59] LABS: RBC/HPF 0-3 HPF (0-3)
[2018-04-11 20:00] LABS: Bacteria/HPF Rare-Few HPF (None Seen); Renal Epithelial 0-3 HPF (0-3)
[2018-04-11 20:02] LABS: Crystals/HPF 2+ URIC ACID HPF (Negative); Hyaline Casts/LPF 0-3 HYALINE CAST LPF (0-3 Hyaline); Other Casts/LPF 0-3 FINELY GRAN LPF (0-3 Hyaline)
[2018-04-11 20:33] LABS: #Basophils 0.1 thou/uL (0.0-0.2); #Eosinphils 0.5 thou/uL (0.0-0.7); #Lymphocytes 4.6 thou/uL (1.20-3.40); #Monocytes 0.8 thou/uL (0.11-0.59); #Neutrophils 5.7 thou/uL (1.40-6.50); %Basophils 0.8 % (0.0-1.0); %Eosinophils 3.9 % (0.0-10.0); %Lymphocytes 39.2 % (21.0-51.0); %Neutrophils 49.1 % (42.0-75.0); Hemoglobin 14.4 g/dL (14.0-18.0); Mean Corpuscular HGB CONC 33.6 g/dL (32.0-36.0); Mean Corpuscular Hemoglobin 29.3 pg (27.0-31.0); Mean Corpuscular Volume 87.1 fL (78.0-98.0); Mean Platelet Volume 6.9 fL (7.4-10.4); Platelet Count 207 thou/uL (130-400); RBC Distribution Width 11.6 % (11.5-14.5); Red Blood Cell (RBC) Count 4.92 mill/uL (4.70-6.10); White Blood Cell (WBC) Count 11.7 thou/uL (4.8-10.8)
--- NOTE | 2018-04-11 20:37 | CT ---
CT ABDOMEN WITHOUT CONTRAST CT PELVIS WITHOUT CONTRAST 04/11/18 COMPARISON: 05/27/17. HISTORY: Symptoms x1 week. Patient is taking p.o. Bactrim. Spasm and pain with increased frequency. FINDINGS: ABDOMEN CT: Calcified granuloma in the lung bases. There are coronary artery calcifications. Normal heart size. Atherosclerosis of a nonaneurysmal aorta. No periaortic fat stranding. CT evidence of cholelithiasis without evidence of cholecystitis. Limited evaluation of the solid organs due to lack of IV contrast administration. Grossly, no solid o rgan abnormality. No gastrohepatic, retrocrural or periportal lymphadenopathy. There are stable nonspecific periaortic and aortocaval lymph nodes. Largest lymph node is in the aortocaval region, measuring 1.7 cm, unchang ed. Symmetric attenuation of the psoas muscles. Bilaterally, no obstructive uropathy. There is exophytic hypodensity in the right kidney compatible w ith a previously identified cyst. No mesenteric mass, lymphadenopathy, free air of free fluid. Gastric mucosa, duodenum, and multiple normal caliber small bowel loops are noted. Ileocecal junction is normal. Normal caliber appendix. Scattered fecal material in a nondistended, nondilated colon. Oc casional diverticulum. No diverticulitis. PELVIC CT: Decompressed urinary bladder, limited evaluation. Mild prostatic hypertrophy. No pelvic mass, lymphad enopathy, free air or free fluid. No lytic or blastic lesions in the osseous structures. Stable bone island in the right sacrum. Chronic changes at L3. IMPRESSION: 1. No evidence of nephrolithiasis or obstructive uropathy. 2. Redemonstration of hyperdensity in the gallbladder which is presumed to be due to gallstone. No evidence of cholecystitis. POS: [facility]
[2018-04-11 20:55] LABS: ALT (SGPT) 44 U/L (8-55); AST (SGOT) 40 U/L (5-34); Albumin 3.9 g/dL (3.4-4.8); Alkaline Phosphatase 61 U/L (40-150); BUN (Urea Nitrogen) 22 mg/dL (8.4-25.7); Bilirubin, Total 0.3 mg/dL (0.2-1.2); Calc. Creatinine Clearance 0 mL/min (70-130); Calcium 8.9 mg/dL (7.8-10.44); Carbon Dioxide 20 mmol/L (23-31); Chloride 108 mmol/L (98-107); Estimated GFR-MDRD 46; Globulin 2.5 g/dL (2.4-3.5); Glucose 113 mg/dL (83-110); Lipase 68 U/L (8-78); Potassium 4.8 mmol/L (3.5-5.1); Protein, Total 6.4 g/dL (5.8-8.1); Sodium 140 mmol/L (136-145)
[2018-04-11 20:56] LABS: Anion Gap 17 mmol/L (10-20)
[2018-04-11] MEDS ORDERED: HYDROcodone/Acetaminophen 5/325 mg Tablet ONE (21:03)
[2018-04-11] MEDS ORDERED: Lidocaine 1% PF 5 ML VIAL ONE (21:04)
[2018-04-11] MEDS ORDERED: cefTRIAXone\\ROCEPHIN 1 GM VIAL ONE (21:04)
== END 2018-04-11 21:30 | disposition home or self-care (01) ==
LOC: SCSER 19:34
DX: N39.0 Urinary tract infection, site not specified (principal); E11.9 Type 2 diabetes mellitus without complications; E78.5 Hyperlipidemia, unspecified; I10 Essential (primary) hypertension; Z79.899 Other long term (current) drug therapy; Z79.84 Long term (current) use of oral hypoglycemic drugs; Z79.82 Long term (current) use of aspirin
CPT/HCPCS: 36415; 74176; 80053; 81003; 81015; 83605; 83690; 85025; 87086; 96372; J0696; J2001

== ENCOUNTER 2018-04-24 11:08 | Outpatient (CLI) | payer MEDICARE, BC ==
--- NOTE | 2018-04-24 14:02 | ULT ---
ARTERIAL DUPLEX SONOGRAM BILATERAL LOWER EXTREMITIES: History: Claudication. Vascular disease. FINDINGS: Right: Good color and spectral doppler flow. Triphasic waveform within the common femoral and femoral arteries. Biphasic waveform within the femoral, deep femoral, popliteal, anterior tibial, posterior tibial and dorsalis pedis and posterior tibialis. No abnormally elevated peak systolic velocities. Left: Good color and spectral doppler flow. Triphasic waveform within the common femoral artery. Biph asic waveform within the femoral, deep femoral, popliteal, anterior tibial, posterior tibial, and ian salis pedis arteries. No abnormally elevated peak systolic velocities. IMPRESSION: Good arterial flow throughout each lower extremity without evidence of significant arterial obstructi on. POS: [facility]
== END 2018-04-24 11:09 | disposition home or self-care (01) ==
LOC: BICULT 11:08
PROVIDERS: ATTEND Family Medicine
DX: E11.40 Type 2 diabetes mellitus with diabetic neuropathy, unspecified (principal); M79.604 Pain in right leg
CPT/HCPCS: 93923

== ENCOUNTER 2018-06-13 08:01 | Outpatient (CLI) | payer MEDICARE, BC ==
[2018-06-13 13:08] LABS: #Basophils 0.1 thou/uL (0.0-0.2); #Eosinphils 0.4 thou/uL (0.0-0.7); #Monocytes 0.8 thou/uL (0.11-0.59); #Neutrophils 5.9 thou/uL (1.40-6.50); %Basophils 0.8 % (0.0-1.0); %Eosinophils 3.6 % (0.0-10.0); %Lymphocytes 40.6 % (21.0-51.0); %Monocytes 6.6 % (0.0-10.0); %Neutrophils 48.5 % (42.0-75.0); Hemoglobin 14.6 g/dL (14.0-18.0); Mean Corpuscular HGB CONC 32.9 g/dL (32.0-36.0); Mean Corpuscular Volume 94.4 fL (78.0-98.0); Mean Platelet Volume 7.3 fL (7.4-10.4); Platelet Count 225 thou/uL (130-400); RBC Distribution Width 12.4 % (11.5-14.5); Red Blood Cell (RBC) Count 4.72 mill/uL (4.70-6.10); White Blood Cell (WBC) Count 12.2 thou/uL (4.8-10.8)
[2018-06-13 13:09] LABS: Bilirubin Negative (Negative); Blood, Urine Small (Negative); Clarity CLEAR (Clear); Glucose, Urine (Dipstick) Negative (Negative); Leukocyte Negative (Negative); Nitrite Negative (Negative); Protein, Urine (Dipstick) Negative (Neg-Trace); Specific Gravity, Urine 1.017 (1.002-1.036); Urobilinogen 0.2 mg/dL (0.2-1.0)
[2018-06-13 13:11] LABS: Bacteria/HPF None Seen HPF (None Seen); Hyaline Casts/LPF 0-3 HYALINE CAST LPF (0-3 Hyaline); Pathc Cast-AUWi Flag 0.14 (0-2.49); Squamous Epithelial 0-3 HPF (0-3); WBC/HPF 0-3 HPF (0-3)
[2018-06-13 13:18] LABS: PTT 26.7 SEC (22.9-36.1)
[2018-06-13 13:19] LABS: Prothrombin Time 13.3 SEC (12.0-14.7)
[2018-06-13 13:31] LABS: Anion Gap 13 mmol/L (10-20); BUN (Urea Nitrogen) 13 mg/dL (8.4-25.7); Calc. Creatinine Clearance 0 mL/min (70-130); Calcium 9.5 mg/dL (7.8-10.44); Carbon Dioxide 24 mmol/L (23-31); Chloride 106 mmol/L (98-107); Estimated GFR-MDRD Greater than 90; Glucose 113 mg/dL (83-110); Potassium 4.3 mmol/L (3.5-5.1); Sodium 139 mmol/L (136-145)
== END 2018-06-13 08:02 | disposition home or self-care (01) ==
LOC: LABBT 08:01
PROVIDERS: ATTEND Orthopaedic Surgery
DX: Z01.818 Encounter for other preprocedural examination (principal); M17.12 Unilateral primary osteoarthritis, left knee
CPT/HCPCS: 80048; 81001; 85025; 85610; 85730; 87081; 93005; 93010

== ENCOUNTER 2018-06-18 08:29 | Outpatient (CLI) | payer MEDICARE, BC | END 2018-06-18 08:30 | disposition home or self-care (01) | LOC: LABBT 08:29 | PROVIDERS: ATTEND Orthopaedic Surgery | DX: Z01.812 Encounter for preprocedural laboratory examination (principal); M17.12 Unilateral primary osteoarthritis, left knee | CPT/HCPCS: 86850; 86900; 86901 ==

== ENCOUNTER 2018-06-25 06:23 | Inpatient (IN) | payer MEDICARE, BC ==
[2018-06-25] MEDS ORDERED: Ropivacaine 0.2% HCl/PF 20 ML ONE (07:23)
[2018-06-25] MEDS ORDERED: Fentanyl 100 MCG/2 ML VIAL ONE ×4 (07:23→12:45)
[2018-06-25] MEDS ORDERED: Midazolam HCl 2 mg/2 ml Vial ONE (07:23)
[2018-06-25] MEDS ORDERED: Vancomycin HCl 1.5 GM in Sodium Chloride 0.9% 250 ML 300 ML IVPB SCH (08:15)
[2018-06-25] MEDS ORDERED: CEFAZOLIN 2 GM/50 ML BAG ONE (08:29)
[2018-06-25] MEDS ORDERED: Sodium Chloride 0.9% 100 ML ONE (08:29)
[2018-06-25] MEDS ORDERED: Tranexamic Acid 1,000 MG/10 ML VIAL ONE (08:29)
[2018-06-25] MEDS ORDERED: traMADol HCl 50 MG TAB PO PRN (09:17)
[2018-06-25] MEDS ORDERED: Ondansetron PF 4 MG/2 ML Vial IVP PRN ×2 (09:17→09:51)
[2018-06-25] MEDS ORDERED: Zolpidem Tartrate 5 MG TAB PO PRN ×2 (09:17→09:51)
[2018-06-25] MEDS ORDERED: Fentanyl 100 MCG/2 ML VIAL IV PRN (09:17)
[2018-06-25] MEDS ORDERED: Promethazine HCl 25 MG/ML VIAL IM PRN ×3 (09:17→10:30)
[2018-06-25] MEDS ORDERED: Ropivacaine 0.2% 550 ML 550 ML NERVE BLCK SCH (09:17)
[2018-06-25] MEDS ORDERED: HYDROcodone/Acetaminophen 10/325 mg Tablet PO PRN (09:17)
[2018-06-25] MEDS ORDERED: Acetaminophen 325 MG TAB PO PRN (09:51)
[2018-06-25] MEDS ORDERED: Azelastine 137 MCG/Spray 30 ML NS PRN (09:53)
[2018-06-25] MEDS ORDERED: CEFAZOLIN/Water 2 GM/20 ML SYRINGE SLOW IVP SCH (10:00)
[2018-06-25] MEDS ORDERED: Ondansetron HCl/PF 4 MG/2 ML Vial IVP PRN (10:30)
[2018-06-25] MEDS ORDERED: Promethazine HCl 25 MG/ML VIAL SLOW IVP PRN (10:30)
[2018-06-25] MEDS ORDERED: Morphine 10 MG/ML VIAL ONE (10:50)
--- NOTE | 2018-06-25 12:18 | RAD ---
TWO VIEWS LEFT KNEE: Date: 06-25-18 Provided Clinical History: Post op. FINDINGS: Post-operative changes of left total knee arthroplasty are demonstrated, without evidence for an acut e osseous abnormality. Post-operative soft tissue gas is seen. IMPRESSION: As above. POS: [facility]
--- NOTE | 2018-06-25 13:05 | OP ---
DATE OF PROCEDURE: 06/25/2018 PROCEDURE PERFORMED: Left total knee arthroplasty using [place] triathlon 5 femur, 5 tibia, 9 mm CS X3 polyethylene, and a 35 patella. CHOCOLATE REFINING ROLLER: Fransisco Polk PA-C. BLOOD LOSS: Minimal. TOURNIQUET TIME: 48 minutes. SPECIMEN: None. DRAINS: None. COMPLICATION: None. PROCEDURE IN DETAIL: After informed consent was obtained in the preoperative holding area, the patient was taken to the operative suite where general anesthesia was induced. Once adequate level of general anesthesia was obtained, the patient was positioned and a well-padded tourniquet was placed around the left proximal thigh. The left lower extremity was then prepped and draped in the usual sterile fashion. Prior to exsanguination, a time-out was called and all members of the surgical team agreed upon site, surgeon, and patient. The extremity was then exsanguinated and the tourniquet was raised. A midline longitudinal incision was then made directly over the patella extending 2 fingerbreadths above the superior pole of the patella and 2 fingerbreadths inferior to the inferior patellar pole of the patella. Deeper subcutaneous layers were dissected sharply and local bleeding was controlled with Bovie electrocautery. A quad tendon longitudinal split was then made sharply and a median parapatellar arthrotomy was carried out both sharp and with Bovie electrocautery, carried down to 1 fingerbreadth medial to the tibial tubercle. The knee was then placed into flexion and the patella was everted nicely, and a copious fat pad ectomy was performed allowing for greater exposure of the tibia. The computer-assisted distal femoral fiducial was then placed and pinned firmly, and the distal femoral cutting guide was pinned firmly into place. The oscillating saw was then used to remove the appropriate amount of bone. The 4-in-1 cutting block was then placed on the distal femur and the oscillating saw was used to remove the appropriate amount of bone off the anterior, posterior, and chamfer cuts. After completion of bone cuts, the anterior cruciate ligament was resected sharply and the posterior cruciate ligament retractor was placed and the tibia was subluxed for better exposure. Partial meniscectomies were carried out, and the tibial computer-assisted fiducial was pinned, and the cutting guide was placed. Oscillating saw was then used to remove the bone, with Hohmann retractors used to take care and protect the collateral ligaments. After the tibial resection was performed, a laminar learning support services director was placed in between the freshened bone cuts. The knee placed at 90 degrees and further bilateral meniscectomies were carried out, and the curved osteotome and curettage were used to remove any excess bone spurs in the posterior compartment. The trial femoral component, tibial baseplate were placed with the appropriate polyethylene trial insert with an appropriate polyethylene spacer and patellar button. The knee was taken through full range of motion with flexion and extension from 0 to 90 degrees and patellar broach squarely in the trochlea without any squinting or subluxation noted. The knee was also stable to varus and valgus stressing at 0, 15, 45, and 90 degrees of flexion. The drawer was negative. All trial components were then removed and the keel punch was used to provide the appropriate defect in the tibia with a mallet. The freshened bone cuts were copiously irrigated with pulsatile lavage of about 1.5 L to remove all excess debris. The freshened bone cuts were then dried with suction and lap sponge. The knee was placed in flexion and retractors were placed to provide access to all bone cuts. Tobramycin-impregnated methyl methacrylate cement was then placed on the freshened bone cuts and implants which were malleted firmly into place. Curettage and Menno elevators were used to remove any excess bone cement. The knee was placed into full extension and the patellar button was placed under compression, and the cement was allowed to cure. Once completed, the components were again taken through full range of motion and copious irrigation of the knee was carried out with another liter of normal saline. All components were inspected fully with full range of motion and varus and valgus stressing. There was no laxity noted and full extension was observed clinically. Primary closure was accomplished with #2 interrupted Vicryl stitch of the arthrotomy defect. This was oversewn with a #2 running Quill barbed stitch. The gravitational platelet system was then injected into the arthrotomy prior to closure. The subcutaneous layer was then closed with a running 0 barbed Monocryl stitch and skin closure accomplished with a running subcuticular 3-0 Monocryl barbed Quill stitch and augmented with cement on the skin. Tourniquet was lowered. Good spontaneous return of distal pulses was noted clinically and a sterile dressing was applied to the incision. The procedure was terminated without any complications. The patient was awakened in the operative suite and the patient was taken to the recovery room in stable condition. Job ID: [id number]
[2018-06-25 14:09] VITALS: BMI 34.7
[2018-06-25] MEDS: Sodium Chloride 0.9% 1,000 ML IV SCH ×2 (14:39→20:38)
[2018-06-25] MEDS ORDERED: Eucerin (Mineral Oil/Petrolatum,White) 30 gm Jar TOP PRN (14:41)
[2018-06-25] MEDS ORDERED: Ondansetron ODT 4 MG TAB PO PRN (14:41)
[2018-06-25] MEDS ORDERED: Sodium Chloride 0.65% Nasal 44 ML BOT EA NARE PRN (14:41)
[2018-06-25] MEDS ORDERED: Diabetic Tussin 200 MG/10 ML UDCUP PO PRN (14:41)
[2018-06-25] MEDS ORDERED: Artificial Tear Sol 15 ML BOT EA EYE PRN (14:41)
[2018-06-25] MEDS ORDERED: hydrALAZINE 20 MG/ML VIAL SLOW IVP PRN (14:41)
[2018-06-25] MEDS ORDERED: Cepastat Lozenges 1 LOZ PO PRN (14:41)
[2018-06-25] MEDS ORDERED: HumaLOG 300 UNITS/3 ML VIAL SC PRN (14:43)
[2018-06-25] MEDS ORDERED: Dextrose 50% Abboject 50 ML SYRINGE SLOW IVP PRN (14:43)
[2018-06-25] MEDS ORDERED: Dextrose 5% in Water 1,000 ML IV PRN (14:43)
--- NOTE | 2018-06-25 14:43 | PDOC.PN ---
- Subjective Encounter Start Date: 06/25/18 Encounter Start Time: 15:30 -: old records requested/rev Patient seen and examined. No new complaints. No overnight events consulted for medical management he had left total knee replacement - Objective Resuscitation Status - Order Detail: 06/25/18 14:40 Resuscitation Status Routine Resuscitation Status: FULL: Full Resuscitation MAR Reviewed: Yes Vital Signs & Weight: Vital Signs (12 hours) Temp Pulse Resp BP Pulse Ox 06/25/18 13:55 97.5 F L 82 14 159/78 H 94 L Weight Weight 249 lb Phys Exam - Physical Examination Constitutional: NAD HEENT: PERRLA, moist MMs, sclera anicteric Neck: no JVD, supple Respiratory: no wheezing, no rales, no rhonchi Cardiovascular: RRR, no significant murmur, no rub Gastrointestinal: soft, non-tender, no distention, positive bowel sounds Musculoskeletal: no edema, pulses present left knee with dressing nerve block+ Neurological: non-focal, normal sensation, moves all 4 limbs Lymphatic: no nodes Psychiatric: normal affect, A&O x 3 Skin: no rash, normal turgor Dx/Plan (1) Status post total left knee replacement Code(s): Z96.652 - PRESENCE OF LEFT ARTIFICIAL KNEE JOINT Status: Acute (2) BPH (benign prostatic hyperplasia) Code(s): N40.0 - BENIGN PROSTATIC HYPERPLASIA WITHOUT LOWER URINRY TRACT SYMP Status: Chronic (3) DM2 (diabetes mellitus, type 2) Status: Chronic Comment: (4) Dyslipidemia Code(s): E78.5 - HYPERLIPIDEMIA, UNSPECIFIED Status: Chronic Comment: (5) HTN (hypertension) Code(s): I10 - ESSENTIAL (PRIMARY) HYPERTENSION Status: Chronic Comment: (6) Obesity (BMI 30-39.9) Code(s): E66.9 - OBESITY, UNSPECIFIED Status: Chronic - Plan cont current plan of care, PT/OT * medication reviewed as below * symptomatic treatment * home medication reconciled * nerve block as per anesthesia * PT/OT as per [facility] protocol * pain control * code status full code * will follow. * pepcid for GI prophylaxis. Review of Systems - Review of Systems ENT: negative: Ear Pain, Ear Discharge, Nose Pain, Nose Discharge, Nose Congestion, Mouth Pain, Mouth Swelling, Throat Pain, Throat Swelling, Other Respiratory: negative: Cough, Dry, Shortness of Breath, Hemoptysis, SOB with Excertion, Pleuritic Pain, Sputum, Wheezing Cardiovascular: negative: chest pain, palpitations, orthopnea, paroxysmal nocturnal dyspnea, edema, light headedness, other Gastrointestinal: negative: Nausea, Vomiting, Abdominal Pain, Diarrhea, Constipation, Melena, Hematochezia, Other Genitourinary: Incontinence. negative: Dysuria, Frequency, Hematuria, Retention , Other Musculoskeletal: negative: Neck Pain, Shoulder Pain, Arm Pain, Back Pain, Hand Pain, Leg Pain, Foot Pain, Other - Medications/Allergies Allergies/Adverse Reactions: Allergies Allergy/AdvReac Type Severity Reaction Status Date / Time clarithromycin [From Biaxin] Allergy Verified 06/13/18 09:47 Medications: Current Medications Acetaminophen (Tylenol) 650 mg PO Q4H PRN PRN Reason: Headache/Fever or Pain Hydrocodone Bitart/Acetaminophen ([place] 10/325) 1 tab PO Q4H PRN PRN Reason: Pain (1-3) Hydrocodone Bitart/Acetaminophen ([place] 10/325) 2 tab PO Q4H PRN PRN Reason: PAIN (4-6) Alogliptin Benzoate (Alogliptin) 25 mg PO QAM [facility] Artificial Tears (Tears Naturale) 2 drop EA EYE PRN PRN PRN Reason: Dry Eyes Aspirin (Ecotrin) 81 mg PO BID [facility] Aspirin (Aspirin Chewable) 81 mg PO DAILY [facility] Atorvastatin Calcium (Lipitor) 20 mg PO HS [facility] Azelastine HCl (Azelastine) 0 ml NS BID PRN PRN Reason: Congestion Diphenhydramine HCl (Benadryl) 25 mg PO Q6H PRN PRN Reason: Itching Famotidine (Pepcid) 20 mg PO BID [facility] Fentanyl (Sublimaze) 50 mcg IV Q1H PRN PRN Reason: PAIN-BREAKTHROUGH Ferrous Gluconate (Fergon) 324 mg PO BID [facility] Guaifenesin (Robitussin Sf) 200 mg PO Q4H PRN PRN Reason: Cough Hydralazine HCl (Apresoline) 10 mg SLOW IVP Q4H PRN PRN Reason: SBP > 180 and HR < 70 Ropivacaine (Ropivacaine 0.2% 550 Ml) 550 mls @ 0 mls/hr NERVE BLCK INF [facility] Sodium Chloride (Normal Saline 0.9%) 1,000 mls @ 100 mls/hr IV .Q10H [facility] Last Admin: 06/25/18 14:39 Dose: Not Given Insulin Glargine 20 units/ (Miscellaneous Medication) 0.2 mls @ 0 mls/hr SC BID [facility] Cefazolin Sodium/Dextrose 2 gm (/ Device) 50 mls @ 100 mls/hr IVPB 0100,0900, 1700 [facility] Stop: 06/26/18 01:29 Iron/Minerals/Multivitamins (Theragran M) 1 tab PO DAILY [facility] Lisinopril (Zestril) 2.5 mg PO QAM [facility] Metformin HCl (Glucophage) 1,000 mg PO BID-WM [facility] Metoprolol Tartrate (Lopressor) 25 mg PO BID [facility] Mineral Oil/White Petrolatum (Eucerin Cream) 0 gm TOP BIDPRN PRN PRN Reason: Dry Skin Ondansetron HCl (Zofran) 4 mg IVP Q6H PRN PRN Reason: Nausea/Vomiting Ondansetron HCl (Zofran Odt) 4 mg PO Q6H PRN PRN Reason: Nausea/Vomiting Pregabalin (Lyrica) 50 mg PO BID [facility] Promethazine HCl (Phenergan) 12.5 mg IM Q4H PRN PRN Reason: Nausea/Vomiting Senna/Docusate Sodium (Senokot S) 2 tab PO BID [facility] Silodosin (Rapaflo) 8 mg PO HS [facility] Sodium Chloride (Flush - Normal Saline) 10 ml IVF PRN PRN PRN Reason: Saline Flush Sodium Chloride ([place] Nasal [place] 0.65%) 0 ml EA NARE QIDPRN PRN PRN Reason: Nasal Congestion Throat Lozenges (Cepastat Lozenges) 1 robbie PO Q2H PRN PRN Reason: Sore Throat Tramadol HCl (Ultram) 50 mg PO Q6H PRN PRN Reason: Mild Pain (1-3) Tramadol HCl (Ultram) 100 mg PO Q6H PRN PRN Reason: Moderate Pain 4-6 Zolpidem Tartrate (Ambien) 5 mg PO HSPRN PRN PRN Reason: Insomnia
[2018-06-25] MEDS: HYDROcodone/Acetaminophen 10/325 mg Tablet PO PRN ×2 (14:59→20:44)
[2018-06-25] MEDS ORDERED: Ropivacaine 0.5% HCl/PF (150 MG/30 ML VIAL) ONE (16:17)
[2018-06-25] MEDS ORDERED: Lidocaine 1% PF 5 ML VIAL ONE (16:46)
[2018-06-25] MEDS ORDERED: PROPOFOL 200 MG/20 ML VIAL ONE (16:46)
[2018-06-25] MEDS ORDERED: ePHEDrine 50 MG/ML VIAL ONE (16:46)
[2018-06-25] MEDS ORDERED: PHENYLEPHRINE-NS 100 MCG/ML 10 ML SYRINGE ONE (16:46)
[2018-06-25] MEDS ORDERED: Ondansetron PF 4 MG/2 ML Vial ONE (16:46)
[2018-06-25] MEDS: metFORMIN 500 MG TAB PO SCH (16:54)
[2018-06-25] MEDS: CEFAZOLIN 2 GM/50 ML-DEXTROSE 2 GM in Premix Bag 1 BAG IVPB SCH (16:55)
[2018-06-25] MEDS: Metoprolol Tartrate 25 MG TAB PO SCH (20:43)
[2018-06-25] MEDS: Famotidine 20 MG TAB PO SCH (20:43)
[2018-06-25] MEDS: Atorvastatin Calcium 20 MG TAB PO SCH (20:43)
[2018-06-25] MEDS: Aspirin 81 mg Enteric Coated Tablet PO SCH (20:43)
[2018-06-25] MEDS: Pregabalin 50 MG CAP PO SCH (20:43)
[2018-06-25] MEDS: Insulin Glargine 20 UNITS in Pre-Filled Syringe 1 EACH SC SCH (20:59)
[2018-06-25] MEDS: Silodosin 8 MG CAP PO SCH (20:59)
[2018-06-26] MEDS: CEFAZOLIN 2 GM/50 ML-DEXTROSE 2 GM in Premix Bag 1 BAG IVPB SCH (00:12)
[2018-06-26] MEDS: Sodium Chloride 0.9% 1,000 ML IV SCH ×2 (05:15→16:17)
[2018-06-26 06:04] LABS: Hemoglobin 12.7 g/dL (14.0-18.0); Mean Corpuscular HGB CONC 32.7 g/dL (32.0-36.0); Mean Corpuscular Volume 94.8 fL (78.0-98.0); Mean Platelet Volume 7.6 fL (7.4-10.4); Platelet Count 202 thou/uL (130-400); RBC Distribution Width 12.1 % (11.5-14.5); Red Blood Cell (RBC) Count 4.09 mill/uL (4.70-6.10); White Blood Cell (WBC) Count 12.7 thou/uL (4.8-10.8)
[2018-06-26] MEDS: Alogliptin 25 MG TAB PO SCH (07:42)
[2018-06-26] MEDS: metFORMIN 500 MG TAB PO SCH ×2 (07:42→16:14)
[2018-06-26] MEDS: Pregabalin 50 MG CAP PO SCH ×2 (07:43→21:55)
[2018-06-26] MEDS: HYDROcodone/Acetaminophen 10/325 mg Tablet PO PRN ×3 (07:43→23:22)
[2018-06-26] MEDS: Aspirin Chewable 81 MG TAB PO SCH (07:44)
[2018-06-26] MEDS: Aspirin 81 mg Enteric Coated Tablet PO SCH ×2 (07:59→21:54)
[2018-06-26] MEDS: Metoprolol Tartrate 25 MG TAB PO SCH ×2 (08:48→21:55)
[2018-06-26] MEDS: Lisinopril 2.5 MG TAB PO SCH (08:48)
[2018-06-26] MEDS: Famotidine 20 MG TAB PO SCH ×2 (08:49→21:54)
[2018-06-26] MEDS: Senokot S 8.6-50 MG TAB PO SCH ×2 (08:49→21:54)
[2018-06-26] MEDS: Multivitamin W/ Minerals 1 TAB PO SCH (08:49)
[2018-06-26] MEDS: Ferrous Gluconate 324 MG TAB PO SCH ×2 (08:49→21:54)
[2018-06-26] MEDS: traMADol HCl 50 MG TAB PO PRN ×2 (10:21→16:14)
[2018-06-26] MEDS: Insulin Glargine 20 UNITS in Pre-Filled Syringe 1 EACH SC SCH ×2 (10:22→22:06)
--- NOTE | 2018-06-26 10:41 | PDOC.PN ---
- Subjective Encounter Start Date: 06/26/18 Encounter Start Time: 08:10 Patient seen and examined. No new complaints. No overnight events pain seem is controlled with pain meds - Objective Resuscitation Status - Order Detail: 06/25/18 14:40 Resuscitation Status Routine Resuscitation Status: FULL: Full Resuscitation MAR Reviewed: Yes Vital Signs & Weight: Vital Signs (12 hours) Temp Pulse Resp BP Pulse Ox 06/26/18 07:09 98.7 F 83 16 108/63 91 L 06/26/18 04:00 98.2 F 81 18 131/52 L 97 06/26/18 00:00 98.5 F 90 18 109/69 97 Weight Weight 249 lb I&O: 06/25/18 06/26/18 06/27/18 06:59 06:59 06:59 Intake Total 2970 Output Total 900 Balance 2069 Result Diagrams: 06/26/18 05:27 Additional Labs: Accuchecks 06/26/18 06/25/18 06/25/18 05:39 20:49 15:51 POC Glucose 138 H 157 H 118 H 06/25/18 08:26 POC Glucose 90 Phys Exam - Physical Examination Constitutional: NAD HEENT: PERRLA, moist MMs, sclera anicteric Neck: no JVD, supple Respiratory: no wheezing, no rales, no rhonchi Cardiovascular: RRR, no significant murmur, no rub Gastrointestinal: soft, non-tender, no distention, positive bowel sounds Musculoskeletal: no edema, pulses present left knee with dressing, nerve block in place Neurological: non-focal, normal sensation, moves all 4 limbs Psychiatric: normal affect, A&O x 3 Skin: no rash, normal turgor Dx/Plan (1) Status post total left knee replacement Code(s): Z96.652 - PRESENCE OF LEFT ARTIFICIAL KNEE JOINT Status: Acute (2) BPH (benign prostatic hyperplasia) Code(s): N40.0 - BENIGN PROSTATIC HYPERPLASIA WITHOUT LOWER URINRY TRACT SYMP Status: Chronic (3) DM2 (diabetes mellitus, type 2) Status: Chronic Comment: (4) Dyslipidemia Code(s): E78.5 - HYPERLIPIDEMIA, UNSPECIFIED Status: Chronic Comment: (5) HTN (hypertension) Code(s): I10 - ESSENTIAL (PRIMARY) HYPERTENSION Status: Chronic Comment: (6) Obesity (BMI 30-39.9) Code(s): E66.9 - OBESITY, UNSPECIFIED Status: Chronic - Plan cont current plan of care, PT/OT, oncology social worker * medication reviewed as below * symptomatic treatment * nerve block as per anesthesia * PT/OT as per [facility] protocol * pain controlled * pepcid for GI prophylaxis. * will need snu placement Review of Systems - Review of Systems ENT: negative: Ear Pain, Ear Discharge, Nose Pain, Nose Discharge, Nose Congestion, Mouth Pain, Mouth Swelling, Throat Pain, Throat Swelling, Other Respiratory: negative: Cough, Dry, Shortness of Breath, Hemoptysis, SOB with Excertion, Pleuritic Pain, Sputum, Wheezing Cardiovascular: negative: chest pain, palpitations, orthopnea, paroxysmal nocturnal dyspnea, edema, light headedness, other Gastrointestinal: negative: Nausea, Vomiting, Abdominal Pain, Diarrhea, Constipation, Melena, Hematochezia, Other Genitourinary: negative: Dysuria, Frequency, Incontinence, Hematuria, Retention , Other Musculoskeletal: negative: Neck Pain, Shoulder Pain, Arm Pain, Back Pain, Hand Pain, Leg Pain, Foot Pain, Other - Medications/Allergies Allergies/Adverse Reactions: Allergies Allergy/AdvReac Type Severity Reaction Status Date / Time clarithromycin [From Biaxin] Allergy Verified 06/13/18 09:47 Medications: Current Medications Acetaminophen (Tylenol) 650 mg PO Q4H PRN PRN Reason: Headache/Fever or Pain Hydrocodone Bitart/Acetaminophen ([place] 10/325) 1 tab PO Q4H PRN PRN Reason: Pain (1-3) Hydrocodone Bitart/Acetaminophen ([place] 10/325) 2 tab PO Q4H PRN PRN Reason: PAIN (4-6) Last Admin: 06/26/18 07:43 Dose: 2 tab Alogliptin Benzoate (Alogliptin) 25 mg PO QAM [facility] Last Admin: 06/26/18 07:42 Dose: 25 mg Artificial Tears (Tears Renewed 15ml Bottle) 2 drop EA EYE PRN PRN PRN Reason: Dry Eyes Aspirin (Ecotrin) 81 mg PO BID [facility] Last Admin: 06/26/18 07:59 Dose: Not Given Aspirin (Aspirin Chewable) 81 mg PO DAILY [facility] Last Admin: 06/26/18 07:44 Dose: 81 mg Atorvastatin Calcium (Lipitor) 20 mg PO HS [facility] Last Admin: 06/25/18 20:43 Dose: 20 mg Azelastine HCl (Azelastine) 0 ml NS BID PRN PRN Reason: Congestion Dextrose/Water (Dextrose 50%) 25 gm SLOW IVP PRN PRN PRN Reason: Hypoglycemia Diphenhydramine HCl (Benadryl) 25 mg PO Q6H PRN PRN Reason: Itching Famotidine (Pepcid) 20 mg PO BID [facility] Last Admin: 06/26/18 08:49 Dose: 20 mg Fentanyl (Sublimaze) 50 mcg IV Q1H PRN PRN Reason: PAIN-BREAKTHROUGH Ferrous Gluconate (Fergon) 324 mg PO BID [facility] Last Admin: 06/26/18 08:49 Dose: 324 mg Glucagon (Glucagon) 1 mg IM PRN PRN PRN Reason: Hypoglycemia Guaifenesin (Robitussin Sf) 200 mg PO Q4H PRN PRN Reason: Cough Hydralazine HCl (Apresoline) 10 mg SLOW IVP Q4H PRN PRN Reason: SBP > 180 and HR < 70 Ropivacaine (Ropivacaine 0.2% 550 Ml) 550 mls @ 0 mls/hr NERVE BLCK INF [facility] Sodium Chloride (Normal Saline 0.9%) 1,000 mls @ 100 mls/hr IV .Q10H [facility] Last Admin: 06/26/18 05:15 Dose: Not Given Insulin Glargine 20 units/ (Miscellaneous Medication) 0.2 mls @ 0 mls/hr SC BID [facility] Last Admin: 06/26/18 10:22 Dose: 0.2 mls Dextrose/Water (D5w) 1,000 mls @ 0 mls/hr IV .Q0M PRN PRN Reason: Hypoglycemia Insulin Human Lispro (Humalog) 0 units SC .MODERATE SLIDING SC PRN PRN Reason: Moderate Correctional Scale Insulin Human Lispro (Humalog) 0 units SC .BEDTIME SLIDING SC PRN PRN Reason: Bedtime Correctional Scale Iron/Minerals/Multivitamins (Theragran M) 1 tab PO DAILY [facility] Last Admin: 06/26/18 08:49 Dose: 1 tab Lisinopril (Zestril) 2.5 mg PO QAM [facility] Last Admin: 06/26/18 08:48 Dose: 2.5 mg Metformin HCl (Glucophage) 1,000 mg PO BID[facility] Last Admin: 06/26/18 07:42 Dose: 1,000 mg Metoprolol Tartrate (Lopressor) 25 mg PO BID [facility] Last Admin: 06/26/18 08:48 Dose: 25 mg Mineral Oil/White Petrolatum (Eucerin Cream) 0 gm TOP BIDPRN PRN PRN Reason: Dry Skin Ondansetron HCl (Zofran) 4 mg IVP Q6H PRN PRN Reason: Nausea/Vomiting Ondansetron HCl (Zofran Odt) 4 mg PO Q6H PRN PRN Reason: Nausea/Vomiting Pregabalin (Lyrica) 50 mg PO BID [facility] Last Admin: 06/26/18 07:43 Dose: 50 mg Promethazine HCl (Phenergan) 12.5 mg IM Q4H PRN PRN Reason: Nausea/Vomiting Senna/Docusate Sodium (Senokot S) 2 tab PO BID [facility] Last Admin: 06/26/18 08:49 Dose: 2 tab Silodosin (Rapaflo) 8 mg PO HS [facility] Last Admin: 06/25/18 20:59 Dose: 8 mg Sodium Chloride (Flush - Normal Saline) 10 ml IVF PRN PRN PRN Reason: Saline Flush Sodium Chloride ([place] Nasal [place] 0.65%) 0 ml EA NARE QIDPRN PRN PRN Reason: Nasal Congestion Throat Lozenges (Cepastat Lozenges) 1 robbie PO Q2H PRN PRN Reason: Sore Throat Tramadol HCl (Ultram) 50 mg PO Q6H PRN PRN Reason: Mild Pain (1-3) Tramadol HCl (Ultram) 100 mg PO Q6H PRN PRN Reason: Moderate Pain 4-6 Last Admin: 06/26/18 10:21 Dose: 100 mg Zolpidem Tartrate (Ambien) 5 mg PO HSPRN PRN PRN Reason: Insomnia
[2018-06-26] MEDS: HumaLOG 300 UNITS/3 ML VIAL SC PRN (18:07)
[2018-06-26] MEDS: Atorvastatin Calcium 20 MG TAB PO SCH (21:54)
[2018-06-26] MEDS: Silodosin 8 MG CAP PO SCH (22:00)
[2018-06-27] MEDS: Sodium Chloride 0.9% 1,000 ML IV SCH ×2 (00:07→14:35)
[2018-06-27] MEDS: diphenhydrAMINE 25 MG CAP PO PRN ×3 (00:47→23:34)
[2018-06-27] MEDS: traMADol HCl 50 MG TAB PO PRN ×2 (00:48→15:02)
[2018-06-27] MEDS: HumaLOG 300 UNITS/3 ML VIAL SC PRN (06:24)
[2018-06-27 07:07] LABS: Mean Corpuscular Hemoglobin 31.4 pg (27.0-31.0); Mean Corpuscular Volume 95.2 fL (78.0-98.0); Mean Platelet Volume 7.7 fL (7.4-10.4); Platelet Count 192 thou/uL (130-400); RBC Distribution Width 12.2 % (11.5-14.5); Red Blood Cell (RBC) Count 3.81 mill/uL (4.70-6.10); White Blood Cell (WBC) Count 14.1 thou/uL (4.8-10.8)
[2018-06-27] MEDS: HYDROcodone/Acetaminophen 10/325 mg Tablet PO PRN (09:30)
[2018-06-27] MEDS: Pregabalin 50 MG CAP PO SCH ×3 (09:34→20:25)
[2018-06-27] MEDS: Aspirin 81 mg Enteric Coated Tablet PO SCH ×2 (09:35→20:25)
--- NOTE | 2018-06-27 09:36 | PDOC.PN ---
- Subjective Encounter Start Date: 06/27/18 Encounter Start Time: 08:00 Patient seen and examined. No new complaints. No overnight events - Objective Resuscitation Status - Order Detail: 06/25/18 14:40 Resuscitation Status Routine Resuscitation Status: FULL: Full Resuscitation MAR Reviewed: Yes Vital Signs & Weight: Vital Signs (12 hours) Temp Pulse Resp BP Pulse Ox 06/27/18 08:20 98.5 F 93 14 111/71 92 L 06/27/18 07:36 95 06/27/18 03:57 98.1 F 98 17 123/73 94 L 06/27/18 00:22 98.9 F 101 H 18 129/75 95 Weight Admit Weight 249 lb Weight 249 lb I&O: 06/26/18 06/27/18 06/28/18 06:59 06:59 06:59 Intake Total 2970 800 600 Output Total 900 1100 Balance 2070 -300 600 Result Diagrams: 06/27/18 06:14 Additional Labs: Accuchecks 06/27/18 06/26/18 06/26/18 06:05 21:13 15:46 POC Glucose 179 H 153 H 167 H 06/26/18 11:18 POC Glucose 161 H Phys Exam - Physical Examination Constitutional: NAD HEENT: PERRLA, moist MMs, sclera anicteric Neck: no JVD, supple Respiratory: no wheezing, no rales, no rhonchi Cardiovascular: RRR, no significant murmur, no rub Gastrointestinal: soft, non-tender, no distention, positive bowel sounds Musculoskeletal: no edema, pulses present Neurological: non-focal, normal sensation Lymphatic: no nodes Psychiatric: normal affect, A&O x 3 Skin: no rash, normal turgor Dx/Plan (1) Status post total left knee replacement Code(s): Z96.652 - PRESENCE OF LEFT ARTIFICIAL KNEE JOINT Status: Acute (2) BPH (benign prostatic hyperplasia) Code(s): N40.0 - BENIGN PROSTATIC HYPERPLASIA WITHOUT LOWER URINRY TRACT SYMP Status: Chronic (3) DM2 (diabetes mellitus, type 2) Status: Chronic Comment: (4) Dyslipidemia Code(s): E78.5 - HYPERLIPIDEMIA, UNSPECIFIED Status: Chronic Comment: (5) HTN (hypertension) Code(s): I10 - ESSENTIAL (PRIMARY) HYPERTENSION Status: Chronic Comment: (6) Obesity (BMI 30-39.9) Code(s): E66.9 - OBESITY, UNSPECIFIED Status: Chronic - Plan cont current plan of care, PT/OT * medication reviewed as below * symptomatic treatment * medically stable for discharge. Review of Systems - Review of Systems ENT: negative: Ear Pain, Ear Discharge, Nose Pain, Nose Discharge, Nose Congestion, Mouth Pain, Mouth Swelling, Throat Pain, Throat Swelling, Other Respiratory: negative: Cough, Dry, Shortness of Breath, Hemoptysis, SOB with Excertion, Pleuritic Pain, Sputum, Wheezing Cardiovascular: negative: chest pain, palpitations, orthopnea, paroxysmal nocturnal dyspnea, edema, light headedness, other Gastrointestinal: negative: Nausea, Vomiting, Abdominal Pain, Diarrhea, Constipation, Melena, Hematochezia, Other Genitourinary: negative: Dysuria, Frequency, Incontinence, Hematuria, Retention , Other Musculoskeletal: negative: Neck Pain, Shoulder Pain, Arm Pain, Back Pain, Hand Pain, Leg Pain, Foot Pain, Other - Medications/Allergies Allergies/Adverse Reactions: Allergies Allergy/AdvReac Type Severity Reaction Status Date / Time clarithromycin [From Biaxin] Allergy Verified 06/13/18 09:47 Medications: Current Medications Acetaminophen (Tylenol) 650 mg PO Q4H PRN PRN Reason: Headache/Fever or Pain Hydrocodone Bitart/Acetaminophen ([place] 10/325) 1 tab PO Q4H PRN PRN Reason: Pain (1-3) Hydrocodone Bitart/Acetaminophen ([place] 10/325) 2 tab PO Q4H PRN PRN Reason: PAIN (4-6) Last Admin: 06/27/18 09:30 Dose: 2 tab Alogliptin Benzoate (Alogliptin) 25 mg PO QAM [facility] Last Admin: 06/26/18 07:42 Dose: 25 mg Artificial Tears (Tears Renewed 15ml Bottle) 2 drop EA EYE PRN PRN PRN Reason: Dry Eyes Aspirin (Ecotrin) 81 mg PO BID [facility] Last Admin: 06/26/18 21:54 Dose: 81 mg Aspirin (Aspirin Chewable) 81 mg PO DAILY [facility] Last Admin: 06/26/18 07:44 Dose: 81 mg Atorvastatin Calcium (Lipitor) 20 mg PO HS [facility] Last Admin: 06/26/18 21:54 Dose: 20 mg Azelastine HCl (Azelastine) 0 ml NS BID PRN PRN Reason: Congestion Dextrose/Water (Dextrose 50%) 25 gm SLOW IVP PRN PRN PRN Reason: Hypoglycemia Diphenhydramine HCl (Benadryl) 25 mg PO Q6H PRN PRN Reason: Itching Last Admin: 06/27/18 00:47 Dose: 25 mg Famotidine (Pepcid) 20 mg PO BID [facility] Last Admin: 06/26/18 21:54 Dose: 20 mg Fentanyl (Sublimaze) 50 mcg IV Q1H PRN PRN Reason: PAIN-BREAKTHROUGH Ferrous Gluconate (Fergon) 324 mg PO BID [facility] Last Admin: 06/26/18 21:54 Dose: 324 mg Glucagon (Glucagon) 1 mg IM PRN PRN PRN Reason: Hypoglycemia Guaifenesin (Robitussin Sf) 200 mg PO Q4H PRN PRN Reason: Cough Hydralazine HCl (Apresoline) 10 mg SLOW IVP Q4H PRN PRN Reason: SBP > 180 and HR < 70 Ropivacaine (Ropivacaine 0.2% 550 Ml) 550 mls @ 0 mls/hr NERVE BLCK INF [facility] Sodium Chloride (Normal Saline 0.9%) 1,000 mls @ 100 mls/hr IV .Q10H [facility] Last Admin: 06/27/18 00:07 Dose: Not Given Insulin Glargine 20 units/ (Miscellaneous Medication) 0.2 mls @ 0 mls/hr SC BID [facility] Last Admin: 06/26/18 22:06 Dose: 0.2 mls Dextrose/Water (D5w) 1,000 mls @ 0 mls/hr IV .Q0M PRN PRN Reason: Hypoglycemia Insulin Human Lispro (Humalog) 0 units SC .MODERATE SLIDING SC PRN PRN Reason: Moderate Correctional Scale Last Admin: 06/27/18 06:24 Dose: 2 unit Insulin Human Lispro (Humalog) 0 units SC .BEDTIME SLIDING SC PRN PRN Reason: Bedtime Correctional Scale Iron/Minerals/Multivitamins (Theragran M) 1 tab PO DAILY [facility] Last Admin: 06/26/18 08:49 Dose: 1 tab Lisinopril (Zestril) 2.5 mg PO QAM [facility] Last Admin: 06/26/18 08:48 Dose: 2.5 mg Metformin HCl (Glucophage) 1,000 mg PO BID[facility] Last Admin: 06/26/18 16:14 Dose: 1,000 mg Metoprolol Tartrate (Lopressor) 25 mg PO BID [facility] Last Admin: 06/26/18 21:55 Dose: 25 mg Mineral Oil/White Petrolatum (Eucerin Cream) 0 gm TOP BIDPRN PRN PRN Reason: Dry Skin Ondansetron HCl (Zofran) 4 mg IVP Q6H PRN PRN Reason: Nausea/Vomiting Ondansetron HCl (Zofran Odt) 4 mg PO Q6H PRN PRN Reason: Nausea/Vomiting Pregabalin (Lyrica) 50 mg PO BID [facility] Last Admin: 06/26/18 21:55 Dose: 50 mg Promethazine HCl (Phenergan) 12.5 mg IM Q4H PRN PRN Reason: Nausea/Vomiting Senna/Docusate Sodium (Senokot S) 2 tab PO BID [facility] Last Admin: 06/26/18 21:54 Dose: 2 tab Silodosin (Rapaflo) 8 mg PO [facility] Last Admin: 06/26/18 22:00 Dose: 8 mg Sodium Chloride (Flush - Normal Saline) 10 ml IVF PRN PRN PRN Reason: Saline Flush Sodium Chloride ([place] Nasal [place] 0.65%) 0 ml EA NARE QIDPRN PRN PRN Reason: Nasal Congestion Throat Lozenges (Cepastat Lozenges) 1 robbie PO Q2H PRN PRN Reason: Sore Throat Tramadol HCl (Ultram) 50 mg PO Q6H PRN PRN Reason: Mild Pain (1-3) Tramadol HCl (Ultram) 100 mg PO Q6H PRN PRN Reason: Moderate Pain 4-6 Last Admin: 06/27/18 00:48 Dose: 100 mg Zolpidem Tartrate (Ambien) 5 mg PO HSPRN PRN PRN Reason: Insomnia
[2018-06-27] MEDS: Ferrous Gluconate 324 MG TAB PO SCH ×2 (09:37→20:28)
[2018-06-27] MEDS: metFORMIN 500 MG TAB PO SCH ×2 (09:37→17:00)
[2018-06-27] MEDS: Lisinopril 2.5 MG TAB PO SCH (09:37)
[2018-06-27] MEDS: Multivitamin W/ Minerals 1 TAB PO SCH (09:38)
[2018-06-27] MEDS: Alogliptin 25 MG TAB PO SCH (09:38)
[2018-06-27] MEDS: Metoprolol Tartrate 25 MG TAB PO SCH ×2 (09:38→20:28)
[2018-06-27] MEDS: Famotidine 20 MG TAB PO SCH ×2 (09:38→20:25)
[2018-06-27] MEDS: Senokot S 8.6-50 MG TAB PO SCH ×2 (09:39→20:25)
--- NOTE | 2018-06-27 10:13 | DIS ---
DATE OF ADMISSION: 06/25/2018 DATE OF DISCHARGE: 06/27/2018 PRIMARY CARE PHYSICIAN: Pato Mayes MD. DISCHARGE DISPOSITION: [facility]. PRIMARY DISCHARGE DIAGNOSIS: Status post left total knee replacement. SECONDARY DISCHARGE DIAGNOSES: 1. Obesity with body mass index 34. 2. Hypertension. 3. Dyslipidemia. 4. Diabetes type 2. 5. Benign enlargement of prostate. 6. Osteoarthritis. 7. Sensorineural deafness. PRIMARY PROCEDURE/OPERATION: Left total knee replacement. RADIOLOGICAL INVESTIGATION: Knee x-ray. SIGNIFICANT LABORATORY DATA: WBC 14.1, hemoglobin 12.0, platelet 192. DISCHARGE MEDICATIONS: 1. [place] 7.5 one tablet q.6 hourly p.r.n. 2. Aspirin 81 mg p.o. b.i.d. for DVT prophylaxis. 3. Lipitor 20 mg p.o. daily. 4. Azelastine nasal spray daily. 5. Lantus 20 units subcu b.i.d. 6. Lisinopril 2.5 mg p.o. daily. 7. Metformin 1000 mg p.o. b.i.d. 8. Metoprolol tartrate 25 mg p.o. b.i.d. 9. Lyrica 50 mg b.i.d. 10. Rapaflo 8 mg p.o. at bedtime. 11. Januvia 100 mg p.o. daily. CONTRAINDICATION: None. CODE STATUS: Full code. INPATIENT ASSISTANT INFANT TODDLER TEACHER: Dr. Hernandez was primary. [facility] Team was consulted for medical comanagement. ALLERGIES: CLARITHROMYCIN. DISCHARGE PLAN: Posthospital, the patient will follow up with Dr. Hernandez as instructed. The patient is planned for discharge to [facility] for more PT/OT and subsequently, the patient will make appointment with primary care physician. HOSPITAL COURSE: An 82-year-old male with above-mentioned medical problem, who was electively admitted for left total knee replacement, which was done on June 25, 2018, by Dr. Hernandez. Postoperatively, [facility] Team was following for medical problem. The patient's all medical problems remained stable. The patient did relatively okay with [facility] protocol treatment. The patient needs placement to [facility] for more PT/OT, that will be arranged with the help of housing case manager. The patient is doing very well. The patient is seen and examined today. Please see my progress note from today for further detail. Job ID: [id number]
[2018-06-27] MEDS: Aspirin Chewable 81 MG TAB PO SCH (11:47)
[2018-06-27] MEDS: Insulin Glargine 20 UNITS in Pre-Filled Syringe 1 EACH SC SCH ×2 (14:32→21:47)
[2018-06-27] MEDS: Atorvastatin Calcium 20 MG TAB PO SCH (20:25)
[2018-06-27] MEDS: Silodosin 8 MG CAP PO SCH (21:38)
[2018-06-28] MEDS: Sodium Chloride 0.9% 1,000 ML IV SCH ×3 (00:19→19:09)
[2018-06-28] MEDS: Lisinopril 2.5 MG TAB PO SCH (08:20)
[2018-06-28] MEDS: Senokot S 8.6-50 MG TAB PO SCH ×2 (08:20→22:34)
[2018-06-28] MEDS: Alogliptin 25 MG TAB PO SCH (08:21)
[2018-06-28] MEDS: Ferrous Gluconate 324 MG TAB PO SCH ×2 (08:21→22:33)
[2018-06-28] MEDS: Aspirin 81 mg Enteric Coated Tablet PO SCH ×2 (08:21→22:34)
[2018-06-28] MEDS: Metoprolol Tartrate 25 MG TAB PO SCH ×2 (08:21→22:33)
[2018-06-28] MEDS: Multivitamin W/ Minerals 1 TAB PO SCH (08:21)
[2018-06-28] MEDS: metFORMIN 500 MG TAB PO SCH ×2 (08:21→19:09)
[2018-06-28] MEDS: Famotidine 20 MG TAB PO SCH ×2 (08:21→22:33)
[2018-06-28] MEDS: Pregabalin 50 MG CAP PO SCH (08:22)
[2018-06-28] MEDS: traMADol HCl 50 MG TAB PO PRN (08:26)
--- NOTE | 2018-06-28 10:45 | PDOC.PN ---
- Subjective Encounter Start Date: 06/28/18 Encounter Start Time: 07:40 Patient seen and examined. No new complaints. No overnight events he still reports pain at surgical site, he has not does well with PT - Objective Resuscitation Status - Order Detail: 06/25/18 14:40 Resuscitation Status Routine Resuscitation Status: FULL: Full Resuscitation MAR Reviewed: Yes Vital Signs & Weight: Vital Signs (12 hours) Temp Pulse Resp BP BP Pulse Ox 06/28/18 08:20 87 132/70 06/28/18 08:00 98.1 F 105 H 18 132/70 91 L 06/28/18 04:21 98.7 F 87 16 113/62 95 06/28/18 00:00 97.7 F 96 16 106/68 90 L Weight Admit Weight 249 lb Weight 249 lb I&O: 06/27/18 06/28/18 06/29/18 06:59 06:59 06:59 Intake Total 800 1718 Output Total 1100 250 Balance -300 1468 Result Diagrams: 06/27/18 06:14 Additional Labs: Accuchecks 06/28/18 06/27/18 06/27/18 06:00 15:57 10:52 POC Glucose 154 H 156 H 155 H Phys Exam - Physical Examination Constitutional: NAD HEENT: PERRLA, moist MMs, sclera anicteric Neck: no JVD, supple Respiratory: no wheezing, no rales, no rhonchi Cardiovascular: RRR, no significant murmur, no rub Gastrointestinal: soft, non-tender, no distention, positive bowel sounds Musculoskeletal: no edema, pulses present Neurological: non-focal, normal sensation, moves all 4 limbs Lymphatic: no nodes Psychiatric: normal affect, A&O x 3 Skin: no rash, normal turgor Dx/Plan (1) Status post total left knee replacement Code(s): Z96.652 - PRESENCE OF LEFT ARTIFICIAL KNEE JOINT Status: Acute (2) BPH (benign prostatic hyperplasia) Code(s): N40.0 - BENIGN PROSTATIC HYPERPLASIA WITHOUT LOWER URINRY TRACT SYMP Status: Chronic (3) DM2 (diabetes mellitus, type 2) Status: Chronic Comment: (4) Dyslipidemia Code(s): E78.5 - HYPERLIPIDEMIA, UNSPECIFIED Status: Chronic Comment: (5) HTN (hypertension) Code(s): I10 - ESSENTIAL (PRIMARY) HYPERTENSION Status: Chronic Comment: (6) Obesity (BMI 30-39.9) Code(s): E66.9 - OBESITY, UNSPECIFIED Status: Chronic - Plan cont current plan of care, PT/OT, public health social worker * will repeat CBC, CMP today * medication reviewed as below * symptomatic treatment * continue PT * expecting discharge tomorrow to SNU. Review of Systems - Review of Systems Constitutional: negative: fever, chills, sweats, weakness, malaise, other Eyes: negative: Pain, Vision Change, Conjunctivae Inflammation, Eyelid Inflammation, Redness, Other ENT: negative: Ear Pain, Ear Discharge, Nose Pain, Nose Discharge, Nose Congestion, Mouth Pain, Mouth Swelling, Throat Pain, Throat Swelling, Other Respiratory: negative: Cough, Dry, Shortness of Breath, Hemoptysis, SOB with Excertion, Pleuritic Pain, Sputum, Wheezing Cardiovascular: negative: chest pain, palpitations, orthopnea, paroxysmal nocturnal dyspnea, edema, light headedness, other Gastrointestinal: negative: Nausea, Vomiting, Abdominal Pain, Diarrhea, Constipation, Melena, Hematochezia, Other Genitourinary: negative: Dysuria, Frequency, Incontinence, Hematuria, Retention , Other Skin: negative: Rash, Lesions, Hua, Bruising, Other - Medications/Allergies Allergies/Adverse Reactions: Allergies Allergy/AdvReac Type Severity Reaction Status Date / Time clarithromycin [From Biaxin] Allergy Verified 06/13/18 09:47 Medications: Current Medications Acetaminophen (Tylenol) 650 mg PO Q4H PRN PRN Reason: Headache/Fever or Pain Hydrocodone Bitart/Acetaminophen ([place] 10/325) 1 tab PO Q4H PRN PRN Reason: Pain (1-3) Hydrocodone Bitart/Acetaminophen ([place] 10/325) 2 tab PO Q4H PRN PRN Reason: PAIN (4-6) Last Admin: 06/27/18 09:30 Dose: 2 tab Alogliptin Benzoate (Alogliptin) 25 mg PO QAM [facility] Last Admin: 06/28/18 08:21 Dose: 25 mg Artificial Tears (Tears Renewed 15ml Bottle) 2 drop EA EYE PRN PRN PRN Reason: Dry Eyes Aspirin (Ecotrin) 81 mg PO BID [facility] Last Admin: 06/28/18 08:21 Dose: 81 mg Aspirin (Aspirin Chewable) 81 mg PO DAILY [facility] Last Admin: 06/27/18 11:47 Dose: Not Given Atorvastatin Calcium (Lipitor) 20 mg PO HS [facility] Last Admin: 06/27/18 20:25 Dose: 20 mg Azelastine HCl (Azelastine) 0 ml NS BID PRN PRN Reason: Congestion Dextrose/Water (Dextrose 50%) 25 gm SLOW IVP PRN PRN PRN Reason: Hypoglycemia Famotidine (Pepcid) 20 mg PO BID [facility] Last Admin: 06/28/18 08:21 Dose: 20 mg Fentanyl (Sublimaze) 50 mcg IV Q1H PRN PRN Reason: PAIN-BREAKTHROUGH Ferrous Gluconate (Fergon) 324 mg PO BID [facility] Last Admin: 06/28/18 08:21 Dose: 324 mg Glucagon (Glucagon) 1 mg IM PRN PRN PRN Reason: Hypoglycemia Guaifenesin (Robitussin Sf) 200 mg PO Q4H PRN PRN Reason: Cough Hydralazine HCl (Apresoline) 10 mg SLOW IVP Q4H PRN PRN Reason: SBP > 180 and HR < 70 Ropivacaine (Ropivacaine 0.2% 550 Ml) 550 mls @ 0 mls/hr NERVE BLCK INF [facility] Sodium Chloride (Normal Saline 0.9%) 1,000 mls @ 100 mls/hr IV .Q10H [facility] Last Admin: 06/28/18 00:19 Dose: Not Given Insulin Glargine 20 units/ (Miscellaneous Medication) 0.2 mls @ 0 mls/hr SC BID [facility] Last Admin: 06/27/18 21:47 Dose: 0.2 mls Dextrose/Water (D5w) 1,000 mls @ 0 mls/hr IV .Q0M PRN PRN Reason: Hypoglycemia Insulin Human Lispro (Humalog) 0 units SC .MODERATE SLIDING SC PRN PRN Reason: Moderate Correctional Scale Last Admin: 06/27/18 06:24 Dose: 2 unit Insulin Human Lispro (Humalog) 0 units SC .BEDTIME SLIDING SC PRN PRN Reason: Bedtime Correctional Scale Iron/Minerals/Multivitamins (Theragran M) 1 tab PO DAILY [facility] Last Admin: 06/28/18 08:21 Dose: 1 tab Lisinopril (Zestril) 2.5 mg PO QAM [facility] Last Admin: 06/28/18 08:20 Dose: 2.5 mg Metformin HCl (Glucophage) 1,000 mg PO BID-[facility] Last Admin: 06/28/18 08:21 Dose: 1,000 mg Metoprolol Tartrate (Lopressor) 25 mg PO BID [facility] Last Admin: 06/28/18 08:21 Dose: 25 mg Mineral Oil/White Petrolatum (Eucerin Cream) 0 gm TOP BIDPRN PRN PRN Reason: Dry Skin Ondansetron HCl (Zofran) 4 mg IVP Q6H PRN PRN Reason: Nausea/Vomiting Ondansetron HCl (Zofran Odt) 4 mg PO Q6H PRN PRN Reason: Nausea/Vomiting Last Admin: 06/27/18 21:37 Dose: 4 mg Pregabalin (Lyrica) 25 mg PO BID [facility] Senna/Docusate Sodium (Senokot S) 2 tab PO BID [facility] Last Admin: 06/28/18 08:20 Dose: 2 tab Silodosin (Rapaflo) 8 mg PO [facility] Last Admin: 06/27/18 21:38 Dose: 8 mg Sodium Chloride (Flush - Normal Saline) 10 ml IVF PRN PRN PRN Reason: Saline Flush Sodium Chloride ([place] Nasal [place] 0.65%) 0 ml EA NARE QIDPRN PRN PRN Reason: Nasal Congestion Throat Lozenges (Cepastat Lozenges) 1 robbie PO Q2H PRN PRN Reason: Sore Throat Tramadol HCl (Ultram) 50 mg PO Q6H PRN PRN Reason: Mild Pain (1-3) Zolpidem Tartrate (Ambien) 5 mg PO HSPRN PRN PRN Reason: Insomnia
[2018-06-28 11:04] LABS: #Eosinphils 0.3 thou/uL (0.0-0.7); #Lymphocytes 3.4 thou/uL (1.20-3.40); #Monocytes 1.4 thou/uL (0.11-0.59); #Neutrophils 10.6 thou/uL (1.40-6.50); %Basophils 0.3 % (0.0-1.0); %Eosinophils 1.7 % (0.0-10.0); %Lymphocytes 21.4 % (21.0-51.0); %Monocytes 8.8 % (0.0-10.0); %Neutrophils 67.8 % (42.0-75.0); Hemoglobin 11.2 g/dL (14.0-18.0); Mean Corpuscular HGB CONC 32.5 g/dL (32.0-36.0); Mean Corpuscular Hemoglobin 30.8 pg (27.0-31.0); Mean Corpuscular Volume 94.7 fL (78.0-98.0); Mean Platelet Volume 7.2 fL (7.4-10.4); Platelet Count 209 thou/uL (130-400); RBC Distribution Width 12.1 % (11.5-14.5); Red Blood Cell (RBC) Count 3.64 mill/uL (4.70-6.10); White Blood Cell (WBC) Count 15.6 thou/uL (4.8-10.8)
[2018-06-28 11:31] LABS: ALT (SGPT) 10 U/L (8-55); AST (SGOT) 15 U/L (5-34); Albumin 3.5 g/dL (3.4-4.8); Alkaline Phosphatase 54 U/L (40-150); Anion Gap 10 mmol/L (10-20); BUN (Urea Nitrogen) 18 mg/dL (8.4-25.7); Bilirubin, Total 0.7 mg/dL (0.2-1.2); Calc. Creatinine Clearance 109 mL/min (70-130); Calcium 9.1 mg/dL (7.8-10.44); Carbon Dioxide 26 mmol/L (23-31); Chloride 99 mmol/L (98-107); Estimated GFR-MDRD 86; Globulin 2.8 g/dL (2.4-3.5); Glucose 153 mg/dL (83-110); Potassium 3.4 mmol/L (3.5-5.1); Protein, Total 6.3 g/dL (5.8-8.1); Sodium 132 mmol/L (136-145)
[2018-06-28] MEDS: Insulin Glargine 20 UNITS in Pre-Filled Syringe 1 EACH SC SCH ×2 (13:10→23:14)
[2018-06-28] MEDS: Aspirin Chewable 81 MG TAB PO SCH (13:10)
[2018-06-28] MEDS: Atorvastatin Calcium 20 MG TAB PO SCH (22:33)
[2018-06-28] MEDS: Pregabalin 25 MG CAP PO SCH (22:34)
[2018-06-28] MEDS: Silodosin 8 MG CAP PO SCH (22:34)
[2018-06-29] MEDS: Sodium Chloride 0.9% 1,000 ML IV SCH ×2 (02:29→12:01)
[2018-06-29] MEDS: HumaLOG 300 UNITS/3 ML VIAL SC PRN (06:57)
--- NOTE | 2018-06-29 09:06 | DIS ---
DATE OF ADMISSION: 06/25/2018 DATE OF DISCHARGE: 06/29/2018 Dictating on behalf of Ken Hernandez MD. CONSULTANTS: [facility] and [place] [facility]. PREOPERATIVE DIAGNOSIS: Left knee degenerative joint disease. POSTOPERATIVE DIAGNOSIS: Left knee degenerative joint disease. PROCEDURE PERFORMED: Left total knee arthroplasty. BRIEF HOSPITAL COURSE: This is an 82-year-old male, who was indicated for the above-mentioned procedure. Postoperatively, he was admitted to the surgical floor in [facility], where he worked with physical and occupational therapies. His pain was managed by [facility]. He received postoperative antibiotics. No complications were incurred during his hospital course. Postoperatively, he was discharged to [facility] facility. DISCHARGE DISPOSITION: FPC. DISCHARGE CONDITION: Stable. DISCHARGE INSTRUCTIONS: The patient will follow up as scheduled with Dr. Hernandez. He will keep his wound clean, dry, and intact. DISCHARGE MEDICATIONS: See MAR. Job ID: [id number]
[2018-06-29] MEDS: Ferrous Gluconate 324 MG TAB PO SCH (09:40)
[2018-06-29] MEDS: Lisinopril 2.5 MG TAB PO SCH (09:40)
[2018-06-29] MEDS: Alogliptin 25 MG TAB PO SCH (09:40)
[2018-06-29] MEDS: Multivitamin W/ Minerals 1 TAB PO SCH (09:40)
[2018-06-29] MEDS: Metoprolol Tartrate 25 MG TAB PO SCH (09:41)
[2018-06-29] MEDS: metFORMIN 500 MG TAB PO SCH (09:41)
[2018-06-29] MEDS: Famotidine 20 MG TAB PO SCH (09:41)
[2018-06-29] MEDS: Aspirin Chewable 81 MG TAB PO SCH (09:42)
[2018-06-29] MEDS: Aspirin 81 mg Enteric Coated Tablet PO SCH (09:43)
[2018-06-29] MEDS: Senokot S 8.6-50 MG TAB PO SCH (09:50)
[2018-06-29] MEDS: Pregabalin 25 MG CAP PO SCH (10:50)
[2018-06-29 11:54] VITALS: BP 111/67; TEMP 98
[2018-06-29] MEDS: Insulin Glargine 20 UNITS in Pre-Filled Syringe 1 EACH SC SCH (12:00)
== END 2018-06-29 12:35 | DRG 470 ==
LOC: SDC 06:23 → SJJU 14:31
PROVIDERS: ADMIT Orthopaedic Surgery; ATTEND Orthopaedic Surgery
PROC: 0SRD0J9 Replacement of Left Knee Joint with Synthetic Substitute, Cemented, Open Approach (ICD-10-PCS; principal; 2018-06-25)
DX: M17.12 Unilateral primary osteoarthritis, left knee (principal); E11.9 Type 2 diabetes mellitus without complications; E78.5 Hyperlipidemia, unspecified; N40.0 Benign prostatic hyperplasia without lower urinary tract symptoms; I10 Essential (primary) hypertension; E66.9 Obesity, unspecified; Z68.34 Body mass index [BMI] 34.0-34.9, adult; H90.5 Unspecified sensorineural hearing loss; Z96.651 Presence of right artificial knee joint; Z83.3 Family history of diabetes mellitus; Z82.3 Family history of stroke
CPT/HCPCS: 36415; 36416; 80053; 85025; 85027; A4306; C1713; C1776; J1825; J2001; J2250; J2270; J2405; J2704; J2795; J3010; J3370; J3490; J7050; Q0162; Q0163

== ENCOUNTER 2019-07-24 08:30 | Outpatient (CLI) | payer MEDICARE, BC ==
--- NOTE | 2019-07-24 08:57 | RAD ---
2 views of the right hip: 07/24/2019 COMPARISON: None HISTORY: Fall, back pain FINDINGS: Mild superior joint space narrowing. Mild degenerative change at the pubic symphysis and ri ght sacroiliac joint. No displaced fracture or evidence of dislocation. IMPRESSION: Degenerative change. No acute osseous abnormality.
--- NOTE | 2019-07-24 08:58 | RAD ---
3 views of the sacroiliac joints: 07/24/2019 COMPARISON: None HISTORY: Fall one month ago, low back pain FINDINGS: There is mild degenerative change involving bilateral sacroiliac joints. No widening of the sacroiliac joints or the pubic symphysis. IMPRESSION: No acute osseous abnormality.
--- NOTE | 2019-07-24 09:00 | RAD ---
2 views left hip: 07/24/2019 COMPARISON: None HISTORY: Trauma, pain FINDINGS: There is superior joint space narrowing with mild lateral acetabular osteophyte formation. No acute fracture or dislocation. IMPRESSION: Degenerative joint disease of the left hip. No acute fracture or dislocation.
--- NOTE | 2019-07-24 09:27 | RAD ---
LUMBAR SPINE 2 VIEWS: Date: 07/24/2019 HISTORY: Acute low back pain. FINDINGS: Comparison made with exam of 03/17/2015. The wedge compression deformity of L2 vertebral body is stable. Remainder of the vertebral bodies dem onstrate normal height. There is minimal anterolisthesis of L4 over L5. There are degenerative change s in the lumbar spine. IMPRESSION: Stable wedge compression deformity of L2. POS: [facility]
== END 2019-07-24 08:31 | disposition home or self-care (01) ==
LOC: BICRAD 08:30
PROVIDERS: ATTEND Family Medicine
DX: M54.5 Low back pain (principal); M25.559 Pain in unspecified hip; M43.9 Deforming dorsopathy, unspecified; M16.12 Unilateral primary osteoarthritis, left hip; M16.11 Unilateral primary osteoarthritis, right hip
CPT/HCPCS: 72100; 72202

== ENCOUNTER 2020-02-03 07:20 | Inpatient (IN) | payer MEDICARE, BC, OTHER ==
[2020-02-03] MEDS ORDERED: cefTRIAXone\\ROCEPHIN 1 GM VIAL ONE (07:53)
[2020-02-03 08:04] LABS: Bilirubin Negative (Negative); Blood, Urine 2+ (Negative); Clarity Clear (Clear); Glucose, Urine (Dipstick) 500 mg/dL (Negative); Ketone, Urine 100 mg/dL (Negative); Leukocyte 250 Leu/uL (Negative); Nitrite Negative (Negative); Protein, Urine (Dipstick) 70 mg/dL (Neg-Trace); Specific Gravity, Urine 1.019 (1.002-1.036); Squamous Epithelial 0-3 HPF (0-3); Urobilinogen Normal mg/dL (Less than 2); WBC/HPF 21-50 HPF (0-3); pH, Urine 6.5 (5.0-9.0)
[2020-02-03 08:05] LABS: Bacteria/HPF 1+ HPF (None Seen)
[2020-02-03 08:11] LABS: Hemoglobin 15.4 g/dL (14.0-18.0); Mean Corpuscular HGB CONC 33.3 g/dL (32.0-36.0); Mean Corpuscular Hemoglobin 31.8 pg (27.0-31.0); Mean Corpuscular Volume 95.5 fL (78.0-98.0); Mean Platelet Volume 7.2 fL (7.4-10.4); Platelet Count 201 thou/uL (130-400); RBC Distribution Width 12.2 % (11.5-14.5); Red Blood Cell (RBC) Count 4.83 mill/uL (4.70-6.10); White Blood Cell (WBC) Count 27.9 thou/uL (4.8-10.8)
[2020-02-03 08:30] LABS: Band 12 % (5-11); Lymphocytes 9 % (21-51); MDiff Complete? YES; Monocytes 4 % (0-10); Platelet Morphology Comment Appears Adequate; RBC Morphology Normal
[2020-02-03 08:33] LABS: ALT (SGPT) 21 U/L (8-55); AST (SGOT) 22 U/L (5-34); Albumin 4.4 g/dL (3.4-4.8); Alkaline Phosphatase 68 U/L (40-110); Anion Gap 18 mmol/L (10-20); BUN (Urea Nitrogen) 10 mg/dL (8.4-25.7); Bilirubin, Total 1.2 mg/dL (0.2-1.2); Calc. Creatinine Clearance 0 mL/min (70-130); Calcium 9.3 mg/dL (7.8-10.44); Carbon Dioxide 19 mmol/L (23-31); Chloride 97 mmol/L (98-107); Estimated GFR-MDRD 79; Globulin 3.3 g/dL (2.4-3.5); Glucose 199 mg/dL (83-110); Potassium 3.9 mmol/L (3.5-5.1); Protein, Total 7.7 g/dL (5.8-8.1); Sodium 130 mmol/L (136-145)
[2020-02-03] MEDS ORDERED: Vancomycin 1.5 GRAM/300 ML BAG 1.5 GM in Premix Bag 1 BAG IVPB SCH (09:15)
[2020-02-03 09:28] LABS: Neutrophil 75 % (42-75)
--- NOTE | 2020-02-03 09:45 | RAD ---
CHEST 1 VIEW: Date: 02/03/2020 HISTORY: Urinary retention. COMPARISON: None. FINDINGS: Lungs are hypoinflated. Scattered scar throughout the lung bases. Right reverse shoulder arthroplasty . No pneumothorax or significant effusion. Heart size is similar. Narrowed left subacromial space. IMPRESSION: Chronic findings. No acute intrathoracic abnormality. POS: HOME
[2020-02-03] MEDS ORDERED: Acetaminophen 325 MG TAB PO PRN (10:24)
[2020-02-03] MEDS ORDERED: Ondansetron PF 4 MG/2 ML Vial IVP PRN ×2 (10:24→12:07)
[2020-02-03] MEDS ORDERED: Ondansetron ODT 4 MG TAB SL PRN (10:24)
[2020-02-03 10:39] VITALS: BMI 39.6
[2020-02-03] MEDS ORDERED: Acetaminophen 650 MG Suppository PR PRN (12:07)
[2020-02-03] MEDS ORDERED: Ondansetron ODT 4 MG TAB PO PRN (12:07)
[2020-02-03] MEDS ORDERED: Calcium Carbonate 500 MG ChewTAB PO PRN (12:07)
[2020-02-03] MEDS ORDERED: Dextrose 5% in Water 1,000 ML IV PRN (12:12)
[2020-02-03] MEDS ORDERED: Dextrose 50% Abboject 50 ML SYRINGE SLOW IVP PRN (12:12)
[2020-02-03] MEDS ORDERED: Azelastine 137 MCG/Spray 30 ML NS PRN (12:13)
[2020-02-03] MEDS: Sodium Chloride 0.9% 1,000 ML IV SCH ×2 (12:15→19:48)
[2020-02-03] MEDS: Acetaminophen 325 MG TAB PO PRN ×3 (13:01→23:26)
--- NOTE | 2020-02-03 15:02 | PDOC.HHP ---
Hospitalist HPI - History of Present Illness Dysuria and incontinence History of Present Illness: PCP: Dr. Mayes The patient is a 84-year-old male with past medical history significant for BPH , TURP with prostatectomy, and diabetes that presents to the ER for the above complaint. The patient reports having "bladder spasms" for the past 3 to 4 days. He reports some associated urinary incontinence. Denies any back pain and hematuria. He denies any nausea, vomiting, diarrhea. Denies recent illness and fever. For the aforementioned reasons, the patient came to the ER for further evaluation. ED Course: Patient presented tachycardic and tachypneic with a normal blood pressure, normal SPO2 and afebrile. T 98.2, BP 138/77, HR 124, RR 26, SPO2 96% RA. Ultrasound negative for any significant urinary retention. Chest x-ray negative for any acute process. WBCs 27.9, lactic acid 1.9 Medication ministration: vancomycin Rocephin 2 L normal saline Hospitalist ROS - Review of Systems Constitutional: denies: fever, chills Respiratory: denies: cough, shortness of breath, hemoptysis Cardiovascular: denies: chest pain, palpitations, edema, light headedness Gastrointestinal: reports: abdominal pain ("Bladder spasm"). denies: nausea, vomiting Genitourinary: reports: dysuria, frequency, incontinence. denies: hematuria Neurological: denies: weakness, change in speech, confusion All other systems reviewed; all pertinent +/- noted in HPI/Subj - Medication Medications: Active Medications Generic Name Dose Route Start Last Admin Trade Name Freq PRN Reason Stop Dose Admin Acetaminophen 650 mg 02/03/20 12:07 02/03/20 13:01 Tylenol PO 650 mg Q4H PRN Administration Headache/Fever/Mild Pain (1-3) Home medications: Lantus 20 units subcu twice daily Metformin 1000 mg p.o. twice daily Januvia 100 mg p.o. every morning Aspirin 81 mg p.o. daily Atorvastatin 20 mg p.o. nightly Azelastine 137 mcg (0.1%) 1 spray each nare twice daily Lisinopril 2.5 mg p.o. every morning. Metoprolol tartrate 25 mg p.o. twice daily. Silodosin 8 mg p.o. nightly Allergies: Biaxin Hospitalist History - Past Medical History Source: patient, RN notes reviewed Cardiac: reports: HTN, Hyperlipidemia Renal/: reports: Benign prostatic enlarg. Endocrine: reports: Diabetes (Type II) - Past Surgical History Past Surgical History: reports: Cataract Removal, TURP (With prostatectomy), Other (Right rotator cuff, right shoulder revision) - Family History Family History: reports: cardiac disorder, respiratory disorder - Social History Smoking Status: Never smoker Alcohol: reports: None Drugs: reports: none Living Situation: Alone Occupation: retired Activity level: independent ambulation - Exam General Appearance: NAD, awake alert. negative: ill appearing General - other findings: Hard of hearing Eye: PERRL, anicteric sclera ENT: normocephalic atraumatic Neck: supple, symmetric Heart: RRR, no murmur, no gallops, no rubs, normal peripheral pulses Respiratory: CTAB, no wheezes, no rales, no ronchi, normal chest expansion, no tachypnea Gastrointestinal: soft, non-tender, normal bowel sounds, no bruit, no guarding, no rigidity Extremities: no cyanosis, no edema Skin: no rashes Neurological: normal sensation to touch, no weakness, no focal deficits Psychiatric: normal affect, A&O x 3 Hospitalist Results - Labs Result Diagrams: 02/03/20 07:54 02/03/20 07:54 Lab results: WBC 27.9 thou/uL (4.8-10.8) H 02/03/20 07:54 Hgb 15.4 g/dL (14.0-18.0) 02/03/20 07:54 Hct 46.1 % (42.0-52.0) 02/03/20 07:54 MCV 95.5 fL (78.0-98.0) 02/03/20 07:54 Plt Count 201 thou/uL (130-400) 02/03/20 07:54 Band Neuts % (Manual) 12 % (5-11) H 02/03/20 07:54 Sodium 130 mmol/L (136-145) L 02/03/20 07:54 Potassium 3.9 mmol/L (3.5-5.1) 02/03/20 07:54 Chloride 97 mmol/L (98-107) L 02/03/20 07:54 Carbon Dioxide 19 mmol/L (23-31) L 02/03/20 07:54 BUN 10 mg/dL (8.4-25.7) 02/03/20 07:54 Creatinine 0.92 mg/dL (0.7-1.3) 02/03/20 07:54 Glucose 199 mg/dL (83-110) H 02/03/20 07:54 Lactic Acid 1.9 mmol/L (0.5-2.2) 02/03/20 07:54 Calcium 9.3 mg/dL (7.8-10.44) 02/03/20 07:54 Total Bilirubin 1.2 mg/dL (0.2-1.2) 02/03/20 07:54 AST 22 U/L (5-34) 02/03/20 07:54 ALT 21 U/L (8-55) 02/03/20 07:54 Alkaline Phosphatase 68 U/L (40-110) 02/03/20 07:54 Serum Total Protein 7.7 g/dL (5.8-8.1) 02/03/20 07:54 Albumin 4.4 g/dL (3.4-4.8) 02/03/20 07:54 Urine Ketones 100 mg/dL (Negative) A 02/03/20 07:25 Urine Blood 2+ (Negative) A 02/03/20 07:25 Urine Nitrite Negative (Negative) 02/03/20 07:25 Ur Leukocyte Esterase 250 Kristen/uL (Negative) A 02/03/20 07:25 Urine RBC 11-20 HPF (0-3) A 02/03/20 07:25 Urine WBC 21-50 HPF (0-3) A 02/03/20 07:25 Ur Squamous Epith Cells 0-3 HPF (0-3) 02/03/20 07:25 Urine Bacteria 1+ HPF (None Seen) A 02/03/20 07:25 - Radiology Interpretation Chest x-ray Status: report reviewed by me Hospitalist H&P A/P - Problem (1) Sepsis Code(s): A41.9 - SEPSIS, UNSPECIFIED ORGANISM Status: Acute (2) UTI (urinary tract infection) Status: Acute (3) Hyponatremia Code(s): E87.1 - HYPO-OSMOLALITY AND HYPONATREMIA Status: Acute (4) DM type 2 (diabetes mellitus, type 2) Status: Chronic (5) Hypertension Code(s): I10 - ESSENTIAL (PRIMARY) HYPERTENSION Status: Chronic (6) BPH (benign prostatic hyperplasia) Code(s): N40.0 - BENIGN PROSTATIC HYPERPLASIA WITHOUT LOWER URINRY TRACT SYMP Status: Chronic - Plan Plan: 84/M with PMH presents for dysuria and incontinence. Will admit the patient to the medical floor, inpatient status. Expected length of stay greater than 2 midnights. #Sepsis Presented tachycardic and tachypneic WBCs 27.9, lactic acid 1.9 UA leukocytes, 1+ bacteria Blood cultures and urine cultures pending. Continue Rocephin and IV fluid resuscitation. #UTI UA 1+ bacteria, 21-50 WBCs, leukocyte esterase, negative nitrite. Continue Rocephin and IV fluid. Cultures pending. #Hyponatremia, mild Presented Na 130. Likely fluid volume depletion. Gentle IV fluid resuscitation. Recheck level in a.m. #DM2 Home dose Lantus 20 units twice daily, metformin and Januvia. Restart Lantus. Hold metformin and Januvia for now. Moderate ISS, AC/at bedtime checks. #Hypertension Presented with normal blood pressure. We will continue to monitor blood pressure. #BPH History of TURP with prostatectomy by Dr. carranza 10 years ago. Continue home dosing of silodosin. Lovenox for DVT prophylaxis. Pepcid for GI prophylaxis. Full code. Designated medical decision-maker is Caitlin Powell (daughter) at [phone]. Discussed the case with Dr. Hayes.
[2020-02-03 16:43] LABS: SARS-CoV-2 MS2 Positive; SARS-CoV-2 N Gene Negative; SARS-CoV-2 S Gene Negative; SARS-CoV-2 by NAA Not Detected (NotDetected); SARS-CoV-2 orf1ab Negative
--- NOTE | 2020-02-03 16:53 | PDOC.EVN ---
Event Note - Event Note Event Note: Patient seen and examined and discussed with Kristopher BERGER. Mr. Saavedra was complaing of urinary frequency, and found to have UTI with sepsis. He has a history of transurethral Prostatectomy. He denies any other symptoms such as cough or congestion, nausea or vomiting. On exam his lungs are clear, no whezing or rhonchi Heart sounds are normal, with regual rate and rhythm, no murmurs Abdomen is soft, NT ND Extremities- no edema or lesions UTI with sepsis- agree with the current treatment plan- continue Rocephin . Urine culture from 2018- grew E. Coli- which was sensitive to Cephalosporins. He tells me he sees Dr. Martin regularly. Given his prior history of urethral instrumentation, will consult Dr. Martin to add in his management.
[2020-02-03] MEDS: HumaLOG 300 UNITS/3 ML VIAL SC PRN (17:12)
[2020-02-03] MEDS: Lorazepam 2 MG/ML VIAL SLOW IVP PRN (18:12)
[2020-02-03] MEDS: Enoxaparin Sodium 40 MG/0.4 ML SYRINGE SC SCH (19:46)
[2020-02-03] MEDS: Atorvastatin Calcium 20 MG TAB PO SCH (19:47)
[2020-02-03] MEDS: Metoprolol Tartrate 25 MG TAB PO SCH (19:47)
[2020-02-03] MEDS: Famotidine 20 MG TAB PO SCH (19:47)
[2020-02-03] MEDS: Famotidine/PF 20 mg/2ml Vial SLOW IVP SCH (19:47)
[2020-02-03] MEDS: Silodosin 8 MG CAP PO SCH (21:26)
[2020-02-03] MEDS: Insulin Glargine 20 UNITS in Pre-Filled Syringe 1 EACH SC SCH (21:30)
[2020-02-03] MEDS ORDERED: Haloperidol Lactate 5 MG/ML VIAL IM PRN (22:00)
[2020-02-03] MEDS ORDERED: Haloperidol Lactate 5 MG/ML VIAL IM SCH (22:15)
[2020-02-04] MEDS: Sodium Chloride 0.9% 1,000 ML IV SCH ×3 (02:40→17:06)
[2020-02-04 06:41] LABS: #Basophils 0.1 thou/uL (0.0-0.2); #Eosinphils 0.1 thou/uL (0.0-0.7); #Lymphocytes 2.7 thou/uL (1.20-3.40); #Monocytes 0.8 thou/uL (0.11-0.59); #Neutrophils 16.6 thou/uL (1.40-6.50); %Basophils 0.3 % (0.0-1.0); %Eosinophils 0.3 % (0.0-10.0); %Lymphocytes 13.4 % (21.0-51.0); %Monocytes 3.8 % (0.0-10.0); %Neutrophils 82.2 % (42.0-75.0); Hemoglobin 14.1 g/dL (14.0-18.0); Mean Corpuscular HGB CONC 32.8 g/dL (32.0-36.0); Mean Corpuscular Volume 94.4 fL (78.0-98.0); Mean Platelet Volume 7.2 fL (7.4-10.4); Platelet Count 176 thou/uL (130-400); Red Blood Cell (RBC) Count 4.55 mill/uL (4.70-6.10); White Blood Cell (WBC) Count 20.2 thou/uL (4.8-10.8)
[2020-02-04 07:43] LABS: Anion Gap 14 mmol/L (10-20); BUN (Urea Nitrogen) 8 mg/dL (8.4-25.7); Calc. Creatinine Clearance 113 mL/min (70-130); Calcium 8.5 mg/dL (7.8-10.44); Carbon Dioxide 19 mmol/L (23-31); Chloride 104 mmol/L (98-107); Estimated GFR-MDRD Greater than 90; Glucose 179 mg/dL (83-110); Potassium 3.8 mmol/L (3.5-5.1); Sodium 133 mmol/L (136-145)
[2020-02-04] MEDS: Lorazepam 2 MG/ML VIAL SLOW IVP PRN ×2 (07:50→15:07)
[2020-02-04] MEDS: Aspirin Chewable 81 MG TAB PO SCH (08:04)
[2020-02-04] MEDS: Famotidine 20 MG TAB PO SCH ×2 (08:04→19:50)
[2020-02-04] MEDS: Metoprolol Tartrate 25 MG TAB PO SCH ×2 (08:04→19:50)
[2020-02-04] MEDS: Lisinopril 2.5 MG TAB PO SCH (08:05)
[2020-02-04] MEDS: cefTRIAXone\\ROCEPHIN 1 GM in Sodium Chloride 0.9% 100 ML IVPB SCH (08:12)
[2020-02-04] MEDS: Famotidine/PF 20 mg/2ml Vial SLOW IVP SCH ×2 (09:00→19:51)
--- NOTE | 2020-02-04 09:29 | PDOC.HOSPP ---
- Subjective Encounter Date: 02/04/20 Encounter Time: 09:28 Subjective: Mr. Saavedra was seen today in follow-up of UTI with sepsis. He is a bit confused and will become agitated at times. - Objective Vital Signs & Weight: Vital Signs (12 hours) Temp Pulse Resp BP Pulse Ox 02/04/20 00:51 98.0 F 02/04/20 00:11 105 H 22 H 137/78 96 Weight Weight 238 lb Result Diagrams: 02/03/20 07:54 02/04/20 03:30 Additional Labs: Accuchecks 02/03/20 02/03/20 19:28 11:32 POC Glucose 173 H 180 H Hospitalist ROS - Medication Medications: Active Medications Generic Name Dose Route Start Last Admin Trade Name Freq PRN Reason Stop Dose Admin Acetaminophen 650 mg 02/03/20 12:07 02/03/20 23:26 Tylenol PO 650 mg Q4H PRN Administration Headache/Fever/Mild Pain (1-3) Atorvastatin Calcium 20 mg 02/03/20 21:00 02/03/20 19:47 Lipitor PO 20 mg HS TRACI Administration Enoxaparin Sodium 40 mg 02/03/20 21:00 02/03/20 19:46 Lovenox SC 40 mg 2100 TRACI Administration Famotidine 20 mg 02/03/20 21:00 02/03/20 19:47 Pepcid SLOW IVP Not Given Q12HR TRACI Famotidine 20 mg 02/03/20 21:00 02/03/20 19:47 Pepcid PO 20 mg BID TRACI Administration Sodium Chloride 1,000 mls @ 125 mls/hr 02/03/20 12:15 02/04/20 02:40 Normal Saline 0.9% IV 1,000 mls .Q8H TRACI Administration Insulin Glargine 20 units/ 0.2 mls @ 0 mls/hr 02/03/20 21:00 02/03/20 21:30 Miscellaneous Medication SC 0.2 mls HS TRACI Administration Insulin Human Lispro 0 units 02/03/20 12:12 02/03/20 17:12 Humalog SC 4 unit .MODERATE SLIDING SC PRN Administration Moderate Correctional Scale Lorazepam 0.5 mg 02/03/20 17:59 02/03/20 18:12 Ativan SLOW IVP 0.5 mg Q6H PRN Administration Anxiety/Agitation Metoprolol Tartrate 25 mg 02/03/20 21:00 02/03/20 19:47 Lopressor PO 25 mg BID TRACI Administration Silodosin 8 mg 02/03/20 21:00 02/03/20 21:26 Rapaflo PO 8 mg HS TRACI Administration - Exam Eye: PERRL, anicteric sclera Heart: RRR, no murmur, no gallops, no rubs, normal peripheral pulses Respiratory: CTAB (with occasional rhonchi) Gastrointestinal: soft, non-tender, non-distended, normal bowel sounds, no palpable masses, no hepatomegaly, no splenomegaly Extremities: no cyanosis, no edema Hosp A/P (1) Sepsis Code(s): A41.9 - SEPSIS, UNSPECIFIED ORGANISM Status: Acute (2) UTI (urinary tract infection) Status: Acute (3) BPH (benign prostatic hyperplasia) Code(s): N40.0 - BENIGN PROSTATIC HYPERPLASIA WITHOUT LOWER URINRY TRACT SYMP Status: Chronic (4) DM type 2 (diabetes mellitus, type 2) Status: Chronic (5) Hypertension Code(s): I10 - ESSENTIAL (PRIMARY) HYPERTENSION Status: Chronic - Plan * UTI with sepsis- continue Rocephin, pending culture results. If he remains febrile through the day may change antibiotic prior to sensitivity results. * BPH- and history of TURP- will consult Dr. Martin * HTN- blood pressure is stable * DM- blood glucose is stable
[2020-02-04] MEDS ORDERED: Ziprasidone 20 MG CAP PO PRN (10:19)
[2020-02-04] MEDS: HumaLOG 300 UNITS/3 ML VIAL SC PRN ×2 (11:16→17:07)
[2020-02-04] MEDS: Insulin Glargine 20 UNITS in Pre-Filled Syringe 1 EACH SC SCH ×2 (11:30→19:49)
--- NOTE | 2020-02-04 13:39 | CON ---
DATE OF CONSULTATION: 02/04/2020 HISTORY OF PRESENT ILLNESS: This is an 84-year-old male, whom I have known for a number of years. He is a former patient of Dr. Luis Miguel Leahy. He had a laser TURP done by Dr. Leahy a number of years ago. I have been seeing him I guess for the last 10 or 12 years. I do not believe he has had any history of prostate cancer, but I have to review my chart. I know he has had occasional episodes of prostatitis and I have seen him for those. I believe he has a low PSA. He had a CT scan done here in December of this year, that did not show any stones, hydro, or obstruction. I think this was done because of the possibility of him having a stone. He has been admitted with high fever, chills, elevated white count, urine that has white cells, red cells, and pyuria. He said he has had 3 or 4 days of urgency, frequency, and then fevers and chills, that brought him in. He does seem a bit confused today. He was able to tell me where he is at and what month it was. He got the day of the month incorrect. He says he is feeling a bit better than yesterday, but looking at his vital signs, he still had a temperature of 102.0 and he was still tachycardic, although his blood pressure has been okay. He is on Rocephin currently and as mentioned, his urine culture is growing a gram-negative figueroa. The blood cultures are negative so far. His white count was 27.9 yesterday, it is down to 20.2 today. His creatinine is normal at 0.7. The urine is as mentioned. His COVID test was negative. His chest x-ray showed no pneumonia. MEDICAL HISTORY: 1. Diabetes. 2. Hypertension. 3. Hyperlipidemia. SURGICAL HISTORY: Includes a laser TURP. He has had right rotator cuff surgery. I have to check my chart, I think he may have had some other orthopedic procedures, but he does not remember at this time. He does not have any flank pain. He is not having any testicular pain. PHYSICAL EXAMINATION: His abdomen is obese. His bladder does not feel to be distended. His flanks are nontender. Penis is not circumcised. There is no lesion. There is no phimosis. Testicles are descended. There is no epididymitis. No mass. No tenderness. Rectal exam; he is very tender along the prostate, but no fluctuance. No perirectal lesions. IMPRESSION AND PLAN: Probably febrile, urinary tract infection. It would seem unlikely that he would have developed a stone or hydro, but he is very tender on his exam of his prostate with a high fever still. I think it is reasonable to do a CT scan with contrast of the abdomen and pelvis to make sure he does not have an abscess of the prostate, make sure he does not have any hydro, make sure that he does not have any abscess on his kidney. I have ordered that to be done. Job ID: [id number]
[2020-02-04] MEDS: Acetaminophen 325 MG TAB PO PRN ×2 (14:30→19:52)
[2020-02-04] MEDS ORDERED: Iopamidol-370 76% 500 ML 1 ML ONE ×2 (15:23→15:25)
--- NOTE | 2020-02-04 15:33 | CT ---
CT ABDOMEN AND PELVIS WITH AND WITHOUT CONTRAST: Date: 02/04/2020 Postcontrast images obtained in portal venous and delayed venous phase. INDICATION: Sepsis. UTI. Comparison made to recent CT abdomen and pelvis of 12/26/2019. FINDINGS: Lung bases are clear with mild bibasilar atelectasis. Artifact from the positioning of the extremities degrades evaluation of the upper abdomen. The liver, spleen, and pancreas appear unremarkable. Subtle density in the gallbladder fundus is again noted, but not as well appreciated on the prior yaron dy which suggested small gallstones. No evidence of pericholecystic edema. The adrenal glands appear normal. The kidneys show symmetric enhancement. The renal cystic lesions are stable. Mild perinephric strandi ng is seen which may be more prominent than on the prior study. This could relate to pyelonephritis o r UTI. No other interval change in appearance of the kidneys. No hydronephrosis. No evidence of urina ry calculus. Urinary bladder is mostly contracted and not well evaluated. There is suggestion of urinary bladder w all thickening; however, this is suboptimally evaluated due to nondistention. Prostate is unremarkable. Small and large bowel loops unremarkable. Aorta normal caliber with no evidence of adenopathy. Osseous structures show mild compression of the L2 vertebra, which is stable. IMPRESSION: 1. Mild increase in the perinephric stranding today. Kidneys and urinary tract otherwise unremarkabl e and unchanged. 2. Subtle density in the gallbladder fundus again noted. 3. No other acute finding or interval change. POS: [facility]
--- NOTE | 2020-02-04 17:03 | PDOC.EVN ---
Event Note - Event Note Event Note: Cultures are beginning to result. Organism a gram negative figueroa, but not yet identified. Renal function is normal .Will give a one time dose of Gentamicin, and await final culture results tomorrow.
[2020-02-04] MEDS ORDERED: Gentamicin 400 MG in Sodium Chloride 0.9% 100 ML IVPB SCH (19:00)
[2020-02-04] MEDS: Silodosin 8 MG CAP PO SCH (19:50)
[2020-02-04] MEDS: Atorvastatin Calcium 20 MG TAB PO SCH (19:50)
[2020-02-04] MEDS: Enoxaparin Sodium 40 MG/0.4 ML SYRINGE SC SCH (19:52)
--- NOTE | 2020-02-05 00:57 | PDOC.EVN ---
Event Note - Event Note Event Note: Was notified by nursing that patient was beginning to have a cough with some wheezing and shortness of breath. Patient was 95 to 96% on room air now is at 93%. Patient has been having IV fluids at 125 ml/hr running since admission. Initial chest x-ray on 02/02 was negative for any acute process. Will repeat stat chest x-ray. Requested nursing to hold IV fluids until chest x-ray results.
[2020-02-05] MEDS: Acetaminophen 325 MG TAB PO PRN ×4 (02:52→21:32)
[2020-02-05] MEDS: Sodium Chloride 0.9% 1,000 ML IV SCH ×3 (06:35→21:16)
--- NOTE | 2020-02-05 07:43 | RAD ---
PORTABLE CHEST: Date: 02/05/2020 PROVIDED CLINICAL HISTORY: Wheezing. FINDINGS: Comparison made with the study dated 02/03/2020. The cardiac and mediastinal silhouette are magnified by portable technique and shallow inspiration. T here is prominence of the pulmonary bronchovascular markings, also at least partially on the basis of lung hypoinflation. No lobar consolidation, pleural fluid, or pneumothorax apparent. IMPRESSION: Hypoinflated exam. POS: OFF
[2020-02-05] MEDS: cefTRIAXone\\ROCEPHIN 1 GM in Sodium Chloride 0.9% 100 ML IVPB SCH (08:37)
[2020-02-05] MEDS: Metoprolol Tartrate 25 MG TAB PO SCH ×2 (08:38→21:30)
[2020-02-05] MEDS: Aspirin Chewable 81 MG TAB PO SCH (08:38)
[2020-02-05] MEDS: Famotidine/PF 20 mg/2ml Vial SLOW IVP SCH ×2 (08:39→21:31)
[2020-02-05] MEDS: Insulin Glargine 20 UNITS in Pre-Filled Syringe 1 EACH SC SCH ×2 (08:39→21:32)
[2020-02-05] MEDS: Famotidine 20 MG TAB PO SCH ×2 (08:39→21:31)
[2020-02-05] MEDS: Lisinopril 2.5 MG TAB PO SCH (08:39)
--- NOTE | 2020-02-05 09:38 | PDOC.HOSPP ---
- Subjective Encounter Date: 02/05/20 Encounter Time: 07:20 Subjective: Seen in follow-up for sepsis. He denies any chest pain or shortness of breath. - Objective Vital Signs & Weight: Vital Signs (12 hours) Temp Pulse Resp BP Pulse Ox 02/05/20 08:39 82 02/05/20 08:00 95 02/05/20 07:15 98.8 F 82 17 128/69 95 02/05/20 03:32 100.5 F H 104 H 22 H 158/81 H 94 L 02/04/20 23:22 99.1 F 91 22 H 106/57 L 93 L Weight Weight 238 lb I&O: 02/04/20 02/05/20 02/06/20 06:59 06:59 06:59 Intake Total 2180 240 Balance 2180 240 Result Diagrams: 02/04/20 04:25 02/04/20 03:30 Additional Labs: Accuchecks 02/05/20 02/04/20 02/04/20 05:10 20:22 17:04 POC Glucose 186 H 153 H 249 H 02/04/20 11:14 POC Glucose 199 H I reviewed patient's labs and MAR Hospitalist ROS - Review of Systems Cardiovascular: denies: chest pain, palpitations, orthopnea, paroxysmal noc. dyspnea, edema, light headedness Gastrointestinal: denies: nausea, vomiting, abdominal pain, diarrhea, constipation, melena, hematochezia - Medication Medications: Active Medications Generic Name Dose Route Start Last Admin Trade Name Freq PRN Reason Stop Dose Admin Acetaminophen 650 mg 02/03/20 12:07 02/05/20 08:39 Tylenol PO 650 mg Q4H PRN Administration Headache/Fever/Mild Pain (1-3) Aspirin 81 mg 02/04/20 09:00 02/05/20 08:38 Aspirin Chewable PO 81 mg DAILY TRACI Administration Atorvastatin Calcium 20 mg 02/03/20 21:00 02/04/20 19:50 Lipitor PO 20 mg HS TRACI Administration Enoxaparin Sodium 40 mg 02/03/20 21:00 02/04/20 19:52 Lovenox SC 40 mg 2100 TRACI Administration Famotidine 20 mg 02/03/20 21:00 02/05/20 08:39 Pepcid SLOW IVP Not Given Q12HR TRACI Famotidine 20 mg 02/03/20 21:00 02/05/20 08:39 Pepcid PO 20 mg BID TRACI Administration Sodium Chloride 1,000 mls @ 125 mls/hr 02/03/20 12:15 02/05/20 06:35 Normal Saline 0.9% IV Not Given .Q8H TRACI Ceftriaxone Sodium 1 gm/ 100 mls @ 200 mls/hr 02/04/20 08:00 02/05/20 08:37 Sodium Chloride IVPB 100 mls Q24HR TRACI Administration Insulin Glargine 20 units/ 0.2 mls @ 0 mls/hr 02/03/20 21:00 02/04/20 19:49 Miscellaneous Medication SC 0.2 mls HS TRACI Administration Insulin Glargine 20 units/ 0.2 mls @ 0 mls/hr 02/04/20 09:00 02/05/20 08:39 Miscellaneous Medication SC 0.2 mls QAM TRACI Administration Insulin Human Lispro 0 units 02/03/20 12:12 02/04/20 17:07 Humalog SC 4 unit .MODERATE SLIDING SC PRN Administration Moderate Correctional Scale Lisinopril 2.5 mg 02/04/20 09:00 02/05/20 08:39 Zestril PO 2.5 mg QAM TRACI Administration Lorazepam 0.5 mg 02/03/20 17:59 02/04/20 15:07 Ativan SLOW IVP 0.5 mg Q6H PRN Administration Anxiety/Agitation Metoprolol Tartrate 25 mg 02/03/20 21:00 02/05/20 08:38 Lopressor PO 25 mg BID TRACI Administration Silodosin 8 mg 02/03/20 21:00 02/04/20 19:50 Rapaflo PO 8 mg HS TRACI Administration - Exam General - other findings: Obese Eye: anicteric sclera ENT: moist mucosa Neck: supple Heart: RRR Respiratory: CTAB Gastrointestinal: soft, non-tender Extremities: no cyanosis Skin: no rashes Psychiatric: normal affect, normal behavior Hosp A/P - Plan (1) Sepsis Code(s): A41.9 - SEPSIS, UNSPECIFIED ORGANISM Status: Acute (2) UTI (urinary tract infection) Status: Acute (3) BPH (benign prostatic hyperplasia) Code(s): N40.0 - BENIGN PROSTATIC HYPERPLASIA WITHOUT LOWER URINRY TRACT SYMP Status: Chronic (4) DM type 2 (diabetes mellitus, type 2) Status: Chronic (5) Hypertension Code(s): I10 - ESSENTIAL (PRIMARY) HYPERTENSION Status: Chronic - Plan * UTI with sepsis-Klebsiella UTI, continue IV ceftriaxone for now and switch to oral ciprofloxacin when patient improves. * BPH-appreciate urology service input * HTN-stable * DM-controlled
[2020-02-05 11:24] LABS: #Eosinphils 0.2 thou/uL (0.0-0.7); #Lymphocytes 2.2 thou/uL (1.20-3.40); #Monocytes 0.8 thou/uL (0.11-0.59); #Neutrophils 5.9 thou/uL (1.40-6.50); %Lymphocytes 24.6 % (21.0-51.0); %Monocytes 8.5 % (0.0-10.0); %Neutrophils 64.9 % (42.0-75.0); Hemoglobin 14.1 g/dL (14.0-18.0); Mean Corpuscular Hemoglobin 31.6 pg (27.0-31.0); Mean Corpuscular Volume 92.7 fL (78.0-98.0); Mean Platelet Volume 7.6 fL (7.4-10.4); Platelet Count 188 thou/uL (130-400); RBC Distribution Width 12.3 % (11.5-14.5); Red Blood Cell (RBC) Count 4.48 mill/uL (4.70-6.10)
[2020-02-05 11:47] LABS: Anion Gap 12 mmol/L (10-20); BUN (Urea Nitrogen) 9 mg/dL (8.4-25.7); Calc. Creatinine Clearance 89 mL/min (70-130); Calcium 8.5 mg/dL (7.8-10.44); Carbon Dioxide 24 mmol/L (23-31); Chloride 100 mmol/L (98-107); Estimated GFR-MDRD 73; Glucose 206 mg/dL (83-110); Potassium 3.4 mmol/L (3.5-5.1); Sodium 133 mmol/L (136-145)
[2020-02-05] MEDS: HumaLOG 300 UNITS/3 ML VIAL SC PRN (12:08)
[2020-02-05] MEDS: Silodosin 8 MG CAP PO SCH (21:30)
[2020-02-05] MEDS: Atorvastatin Calcium 20 MG TAB PO SCH (21:31)
[2020-02-05] MEDS: Enoxaparin Sodium 40 MG/0.4 ML SYRINGE SC SCH (21:31)
[2020-02-06] MEDS: HumaLOG 300 UNITS/3 ML VIAL SC PRN ×3 (05:34→21:00)
[2020-02-06] MEDS: Acetaminophen 325 MG TAB PO PRN ×3 (05:35→20:58)
[2020-02-06 06:13] LABS: #Eosinphils 0.5 thou/uL (0.0-0.7); #Lymphocytes 2.3 thou/uL (1.20-3.40); #Neutrophils 3.2 thou/uL (1.40-6.50); %Basophils 0.6 % (0.0-1.0); %Eosinophils 6.5 % (0.0-10.0); %Monocytes 13.8 % (0.0-10.0); Hemoglobin 13.8 g/dL (14.0-18.0); Mean Corpuscular HGB CONC 32.4 g/dL (32.0-36.0); Mean Corpuscular Hemoglobin 29.9 pg (27.0-31.0); Mean Corpuscular Volume 92.6 fL (78.0-98.0); Mean Platelet Volume 7.1 fL (7.4-10.4); Platelet Count 179 thou/uL (130-400); RBC Distribution Width 12.4 % (11.5-14.5); Red Blood Cell (RBC) Count 4.59 mill/uL (4.70-6.10)
[2020-02-06 06:41] LABS: Anion Gap 12 mmol/L (10-20); BUN (Urea Nitrogen) 8 mg/dL (8.4-25.7); Calc. Creatinine Clearance 105 mL/min (70-130); Calcium 8.4 mg/dL (7.8-10.44); Carbon Dioxide 25 mmol/L (23-31); Chloride 103 mmol/L (98-107); Estimated GFR-MDRD 89; Glucose 155 mg/dL (83-110); Potassium 3.2 mmol/L (3.5-5.1); Sodium 137 mmol/L (136-145)
[2020-02-06] MEDS ORDERED: Potassium Chloride 20 MEQ TAB PO SCH (07:30)
[2020-02-06] MEDS: Famotidine 20 MG TAB PO SCH ×2 (09:47→20:56)
[2020-02-06] MEDS: Lisinopril 2.5 MG TAB PO SCH (09:47)
[2020-02-06] MEDS: Aspirin Chewable 81 MG TAB PO SCH (09:47)
[2020-02-06] MEDS: Insulin Glargine 20 UNITS in Pre-Filled Syringe 1 EACH SC SCH ×2 (09:48→20:58)
[2020-02-06] MEDS: Metoprolol Tartrate 25 MG TAB PO SCH ×2 (09:48→20:57)
[2020-02-06] MEDS: Famotidine/PF 20 mg/2ml Vial SLOW IVP SCH ×2 (09:49→20:58)
[2020-02-06] MEDS: cefTRIAXone\\ROCEPHIN 1 GM in Sodium Chloride 0.9% 100 ML IVPB SCH (09:49)
[2020-02-06] MEDS: Senokot S 8.6-50 MG TAB PO PRN (09:52)
--- NOTE | 2020-02-06 12:28 | PDOC.HOSPP ---
- Subjective Encounter Date: 02/06/20 Encounter Time: 08:20 Subjective: Patient seen for follow-up regarding urinary tract infection. More alert today. Denies chest pain or shortness of breath. Knows he was confused yesterday. - Objective Vital Signs & Weight: Vital Signs (12 hours) Temp Pulse Resp BP Pulse Ox 02/06/20 09:47 84 02/06/20 08:55 98.0 F 84 18 128/76 95 02/06/20 04:00 98.2 F 84 18 128/77 94 L Weight Weight 238 lb I&O: 02/05/20 02/06/20 02/07/20 06:59 06:59 06:59 Intake Total 2180 640 240 Balance 2180 640 240 Result Diagrams: 02/06/20 05:59 02/06/20 05:59 Additional Labs: Accuchecks 02/06/20 02/05/20 11:45 15:53 POC Glucose 200 H 162 H I reviewed patient's labs and MAR Hospitalist ROS - Review of Systems Cardiovascular: denies: chest pain, palpitations, orthopnea, paroxysmal noc. dyspnea, edema, light headedness Gastrointestinal: denies: nausea, vomiting, abdominal pain, diarrhea, constipation, melena, hematochezia - Medication Medications: Active Medications Generic Name Dose Route Start Last Admin Trade Name Basilq PRN Reason Stop Dose Admin Acetaminophen 650 mg 02/03/20 12:07 02/06/20 09:47 Tylenol PO 650 mg Q4H PRN Administration Headache/Fever/Mild Pain (1-3) Aspirin 81 mg 02/04/20 09:00 02/06/20 09:47 Aspirin Chewable PO 81 mg DAILY TRACI Administration Atorvastatin Calcium 20 mg 02/03/20 21:00 02/05/20 21:31 Lipitor PO 20 mg HS TRACI Administration Enoxaparin Sodium 40 mg 02/03/20 21:00 02/05/20 21:31 Lovenox SC 40 mg 2100 TRACI Administration Famotidine 20 mg 02/03/20 21:00 02/06/20 09:49 Pepcid SLOW IVP Not Given Q12HR TRACI Famotidine 20 mg 02/03/20 21:00 02/06/20 09:47 Pepcid PO 20 mg BID TRACI Administration Ceftriaxone Sodium 1 gm/ 100 mls @ 200 mls/hr 02/04/20 08:00 09/18/20 09:49 Sodium Chloride IVPB 100 mls Q24HR TRACI Administration Insulin Glargine 20 units/ 0.2 mls @ 0 mls/hr 02/03/20 21:00 02/05/20 21:32 Miscellaneous Medication SC 0.2 mls HS TRACI Administration Insulin Glargine 20 units/ 0.2 mls @ 0 mls/hr 02/04/20 09:00 02/06/20 09:48 Miscellaneous Medication SC 0.2 mls QAM TRACI Administration Insulin Human Lispro 0 units 02/03/20 12:12 02/06/20 05:34 Humalog SC 2 unit .MODERATE SLIDING SC PRN Administration Moderate Correctional Scale Lisinopril 2.5 mg 02/04/20 09:00 02/06/20 09:47 Zestril PO 2.5 mg QAM TRACI Administration Lorazepam 0.5 mg 02/03/20 17:59 02/04/20 15:07 Ativan SLOW IVP 0.5 mg Q6H PRN Administration Anxiety/Agitation Metoprolol Tartrate 25 mg 02/03/20 21:00 02/06/20 09:48 Lopressor PO 25 mg BID TRACI Administration Senna/Docusate Sodium 2 tab 02/03/20 12:07 02/06/20 09:52 Senokot S PO 2 tab BIDPRN PRN Administration Constipation Silodosin 8 mg 02/03/20 21:00 02/05/20 21:30 Rapaflo PO 8 mg HS TRACI Administration - Exam General Appearance: awake alert Eye: anicteric sclera ENT: moist mucosa Neck: supple Heart: RRR Respiratory: CTAB Gastrointestinal: soft Extremities: no cyanosis Skin: no rashes Psychiatric: normal affect, normal behavior Hosp A/P - Plan (1) UTI (urinary tract infection) Status: Acute (2) DM type 2 (diabetes mellitus, type 2) Status: Chronic (3) BPH (benign prostatic hyperplasia) Code(s): N40.0 - BENIGN PROSTATIC HYPERPLASIA WITHOUT LOWER URINRY TRACT SYMP Status: Chronic (4) Hypertension Code(s): I10 - ESSENTIAL (PRIMARY) HYPERTENSION Status: Chronic (5) Sepsis Code(s): A41.9 - SEPSIS, UNSPECIFIED ORGANISM Status: Resolved - Plan * Patient has Klebsiella urinary tract infection. Currently on ceftriaxone. Will transition to fluoroquinolone at the time of discharge. * BPH-seen by urology service during this hospitalization, appreciate input. * HTN-stable * DM-controlled * Patient awaiting approval for senior living facility.
--- NOTE | 2020-02-06 14:32 | PRG ---
DATE OF SERVICE: 02/06/2020 This patient is doing much better. I came to see him today, he is sound asleep and for that reason, we did not wake him. His nurse states his mental status is back to normal. Vital signs have been fine. He has not had a temperature now for over 24 hours. I reviewed his CAT scan. He has no evidence of hydronephrosis or ureteral obstruction. I do not see any thing to suggest a prostatic abscess. There is good symmetric enhancement of the kidneys and I do not see any stones. There is a little bit of perinephric stranding. I would think this is probably fairly a nonspecific finding. His urine culture grew out a nearly pansensitive Klebsiella. His blood cultures were negative. I think this patient can go home on appropriate oral antibiotic for 2 weeks. I am happy to see him after that and he calls being set up a visit. He does not need stents. He does not need a Felix. There is nothing needing to be drained. My guess is he probably had prostatitis causing his febrile illness. Job ID: [id number] [facility]
[2020-02-06] MEDS: Atorvastatin Calcium 20 MG TAB PO SCH (20:57)
[2020-02-06] MEDS: Enoxaparin Sodium 40 MG/0.4 ML SYRINGE SC SCH (20:57)
[2020-02-06] MEDS: Silodosin 8 MG CAP PO SCH (20:57)
[2020-02-07] MEDS: Acetaminophen 325 MG TAB PO PRN ×2 (05:05→20:36)
[2020-02-07] MEDS: HumaLOG 300 UNITS/3 ML VIAL SC PRN ×2 (05:06→12:41)
[2020-02-07 07:33] LABS: Anion Gap 16 mmol/L (10-20); BUN (Urea Nitrogen) 12 mg/dL (8.4-25.7); Calc. Creatinine Clearance 109 mL/min (70-130); Calcium 8.5 mg/dL (7.8-10.44); Carbon Dioxide 20 mmol/L (23-31); Chloride 105 mmol/L (98-107); Estimated GFR-MDRD Greater than 90; Glucose 150 mg/dL (83-110); Potassium 3.9 mmol/L (3.5-5.1); Sodium 137 mmol/L (136-145)
[2020-02-07] MEDS: Aspirin Chewable 81 MG TAB PO SCH (08:11)
[2020-02-07] MEDS: Metoprolol Tartrate 25 MG TAB PO SCH ×2 (08:12→20:35)
[2020-02-07] MEDS: Famotidine 20 MG TAB PO SCH ×2 (08:12→20:35)
[2020-02-07] MEDS: cefTRIAXone\\ROCEPHIN 1 GM in Sodium Chloride 0.9% 100 ML IVPB SCH (08:12)
[2020-02-07] MEDS: Famotidine/PF 20 mg/2ml Vial SLOW IVP SCH ×2 (08:12→20:35)
[2020-02-07] MEDS: Lisinopril 2.5 MG TAB PO SCH (08:12)
[2020-02-07 08:52] LABS: Mean Corpuscular HGB CONC 31.7 g/dL (32.0-36.0); Mean Corpuscular Hemoglobin 29.5 pg (27.0-31.0); Mean Corpuscular Volume 93.3 fL (78.0-98.0); Mean Platelet Volume 9.2 fL (7.4-10.4); Platelet Count 147 thou/uL (130-400); RBC Distribution Width 12.5 % (11.5-14.5); Red Blood Cell (RBC) Count 4.73 mill/uL (4.70-6.10); White Blood Cell (WBC) Count 7.2 thou/uL (4.8-10.8)
[2020-02-07 10:42] LABS: Eosinophils 7 % (0-10); Lymphocytes 38 % (21-51); MDiff Complete? YES; Monocytes 11 % (0-10); Neutrophil 44 % (42-75); Platelet Morphology Comment Appears Adequate
--- NOTE | 2020-02-07 11:40 | PDOC.HOSPP ---
- Subjective Encounter Date: 02/07/20 Encounter Time: 08:00 Subjective: Patient seen for follow-up regarding urinary tract infection. He reports feeling significantly better compared to yesterday and day before. - Objective Vital Signs & Weight: Vital Signs (12 hours) Temp Pulse Resp BP Pulse Ox 02/07/20 08:18 97.6 F 87 20 139/86 97 02/07/20 04:30 97.8 F 94 17 134/75 94 L 02/07/20 02:58 94 L Weight Weight 238 lb I&O: 02/06/20 02/07/20 02/08/20 06:59 06:59 06:59 Intake Total 640 1270 Balance 640 1270 Result Diagrams: 02/07/20 06:41 02/07/20 06:41 Additional Labs: Accuchecks 02/06/20 02/06/20 02/06/20 16:06 11:45 04:37 POC Glucose 182 H 200 H 169 H I reviewed patient's labs and MAR Hospitalist ROS - Review of Systems Gastrointestinal: denies: nausea, vomiting, abdominal pain, diarrhea, constipation, melena, hematochezia Genitourinary: denies: dysuria, frequency, incontinence, hematuria, retention - Medication Medications: Active Medications Generic Name Dose Route Start Last Admin Trade Name Freq PRN Reason Stop Dose Admin Acetaminophen 650 mg 02/03/20 12:07 02/07/20 05:05 Tylenol PO 650 mg Q4H PRN Administration Headache/Fever/Mild Pain (1-3) Aspirin 81 mg 02/04/20 09:00 02/07/20 08:11 Aspirin Chewable PO 81 mg DAILY TRACI Administration Atorvastatin Calcium 20 mg 02/03/20 21:00 02/06/20 20:57 Lipitor PO 20 mg HS TRACI Administration Enoxaparin Sodium 40 mg 02/03/20 21:00 02/06/20 20:57 Lovenox SC 40 mg 2100 TRACI Administration Famotidine 20 mg 02/03/20 21:00 02/07/20 08:12 Pepcid SLOW IVP Not Given Q12HR TRACI Famotidine 20 mg 02/03/20 21:00 02/07/20 08:12 Pepcid PO 20 mg BID TRACI Administration Ceftriaxone Sodium 1 gm/ 100 mls @ 200 mls/hr 02/04/20 08:00 02/07/20 08:12 Sodium Chloride IVPB 100 mls Q24HR TRACI Administration Insulin Glargine 20 units/ 0.2 mls @ 0 mls/hr 02/03/20 21:00 02/06/20 20:58 Miscellaneous Medication SC 0.2 mls HS TRACI Administration Insulin Glargine 20 units/ 0.2 mls @ 0 mls/hr 02/04/20 09:00 02/06/20 09:48 Miscellaneous Medication SC 0.2 mls QAM TRACI Administration Insulin Human Lispro 0 units 02/03/20 12:12 02/07/20 05:06 Humalog SC 2 unit .MODERATE SLIDING SC PRN Administration Moderate Correctional Scale Insulin Human Lispro 0 units 02/03/20 12:12 02/06/20 21:00 Humalog SC 2 unit .BEDTIME SLIDING SC PRN Administration Bedtime Correctional Scale Lisinopril 2.5 mg 02/04/20 09:00 02/07/20 08:12 Zestril PO 2.5 mg QAM TRACI Administration Lorazepam 0.5 mg 02/03/20 17:59 02/04/20 15:07 Ativan SLOW IVP 0.5 mg Q6H PRN Administration Anxiety/Agitation Metoprolol Tartrate 25 mg 02/03/20 21:00 02/07/20 08:12 Lopressor PO 25 mg BID TRACI Administration Senna/Docusate Sodium 2 tab 02/03/20 12:07 02/06/20 09:52 Senokot S PO 2 tab BIDPRN PRN Administration Constipation Silodosin 8 mg 02/03/20 21:00 02/06/20 20:57 Rapaflo PO 8 mg HS TRACI Administration - Exam General - other findings: Obesity Eye: anicteric sclera ENT: normocephalic atraumatic Neck: no thyromegaly Heart: RRR Respiratory: normal chest expansion Gastrointestinal: soft Extremities: no cyanosis Skin: no rashes Psychiatric: normal affect, normal behavior Hosp A/P - Plan -Assessment (1) UTI (urinary tract infection) Status: Acute (2) DM type 2 (diabetes mellitus, type 2) Status: Chronic (3) BPH (benign prostatic hyperplasia) Code(s): N40.0 - BENIGN PROSTATIC HYPERPLASIA WITHOUT LOWER URINRY TRACT SYMP Status: Chronic (4) Hypertension Code(s): I10 - ESSENTIAL (PRIMARY) HYPERTENSION Status: Chronic (5) Sepsis Code(s): A41.9 - SEPSIS, UNSPECIFIED ORGANISM Status: Resolved - Plan * Patient has Klebsiella UTI. He is currently being treated with ceftriaxone. Will transition to fluoroquinolone at the time of discharge. Total duration of antibiotic: 2 weeks * BPH-stable * HTN-stable * DM-controlled * Disposition: Patient awaiting approval for longterm facility.
[2020-02-07] MEDS: Insulin Glargine 20 UNITS in Pre-Filled Syringe 1 EACH SC SCH ×2 (12:20→20:43)
--- NOTE | 2020-02-07 13:40 | EKG ---
Test Reason : Blood Pressure : / mmHG Vent. Rate : 118 BPM Atrial Rate : 118 BPM P-R Int : 158 ms QRS Dur : 088 ms QT Int : 312 ms P-R-T Axes : 036 -32 050 degrees QTc Int : 437 ms Sinus tachycardia with Premature atrial complexes Left axis deviation Abnormal ECG Confirmed by CHACE THOMAS DO ([id number]), video news editor SABA JONES ([id number]) on 02/07/2020 1:40:07 PM Referred By: Confirmed By:CHACE THOMAS DO
[2020-02-07] MEDS: Enoxaparin Sodium 40 MG/0.4 ML SYRINGE SC SCH (20:35)
[2020-02-07] MEDS: Atorvastatin Calcium 20 MG TAB PO SCH (20:35)
[2020-02-07] MEDS: Silodosin 8 MG CAP PO SCH (20:37)
[2020-02-07] MEDS: Senokot S 8.6-50 MG TAB PO PRN (20:44)
[2020-02-08 06:13] LABS: #Basophils 0.1 thou/uL (0.0-0.2); #Eosinphils 0.4 thou/uL (0.0-0.7); #Lymphocytes 3.5 thou/uL (1.20-3.40); #Monocytes 0.9 thou/uL (0.11-0.59); #Neutrophils 3.3 thou/uL (1.40-6.50); %Basophils 0.9 % (0.0-1.0); %Eosinophils 5.4 % (0.0-10.0); %Lymphocytes 42.4 % (21.0-51.0); %Monocytes 10.4 % (0.0-10.0); %Neutrophils 40.8 % (42.0-75.0); Hemoglobin 14.8 g/dL (14.0-18.0); Mean Corpuscular HGB CONC 32.4 g/dL (32.0-36.0); Mean Corpuscular Hemoglobin 30.1 pg (27.0-31.0); Mean Corpuscular Volume 92.9 fL (78.0-98.0); Mean Platelet Volume 7.3 fL (7.4-10.4); Platelet Count 216 thou/uL (130-400); RBC Distribution Width 12.4 % (11.5-14.5); Red Blood Cell (RBC) Count 4.92 mill/uL (4.70-6.10); White Blood Cell (WBC) Count 8.2 thou/uL (4.8-10.8)
[2020-02-08 06:33] LABS: Anion Gap 15 mmol/L (10-20); BUN (Urea Nitrogen) 9 mg/dL (8.4-25.7); Calc. Creatinine Clearance 110 mL/min (70-130); Calcium 8.6 mg/dL (7.8-10.44); Carbon Dioxide 22 mmol/L (23-31); Chloride 104 mmol/L (98-107); Estimated GFR-MDRD Greater than 90; Glucose 186 mg/dL (83-110); Potassium 3.5 mmol/L (3.5-5.1); Sodium 137 mmol/L (136-145)
[2020-02-08] MEDS: Lisinopril 2.5 MG TAB PO SCH (08:37)
[2020-02-08] MEDS: Metoprolol Tartrate 25 MG TAB PO SCH ×2 (08:38→20:12)
[2020-02-08] MEDS: Aspirin Chewable 81 MG TAB PO SCH (08:38)
[2020-02-08] MEDS: Famotidine/PF 20 mg/2ml Vial SLOW IVP SCH ×2 (08:38→20:13)
[2020-02-08] MEDS: Famotidine 20 MG TAB PO SCH ×3 (08:38→20:11)
[2020-02-08] MEDS: cefTRIAXone\\ROCEPHIN 1 GM in Sodium Chloride 0.9% 100 ML IVPB SCH (08:39)
--- NOTE | 2020-02-08 10:07 | PDOC.HOSPP ---
- Subjective Encounter Date: 02/08/20 Encounter Time: 06:20 Subjective: Patient seen for follow-up regarding urinary tract infection. He reports feeling well, denies any complaints. - Objective Vital Signs & Weight: Vital Signs (12 hours) Temp Pulse Resp BP Pulse Ox 02/08/20 08:00 97.6 F 86 16 125/77 95 Weight Weight 238 lb I&O: 02/07/20 02/08/20 02/09/20 06:59 06:59 06:59 Intake Total 1270 1530 Balance 1270 1530 Result Diagrams: 02/08/20 05:34 02/08/20 05:34 Additional Labs: Accuchecks 02/08/20 02/07/20 02/07/20 04:32 19:54 16:59 POC Glucose 143 H 142 H 145 H 02/07/20 12:31 POC Glucose 196 H I reviewed patient's labs and MAR Hospitalist ROS - Review of Systems Genitourinary: denies: dysuria, frequency, incontinence, hematuria Skin: denies: rash, lesions, cele, bruising - Medication Medications: Active Medications Generic Name Dose Route Start Last Admin Trade Name Freq PRN Reason Stop Dose Admin Acetaminophen 650 mg 02/03/20 12:07 02/07/20 20:36 Tylenol PO 650 mg Q4H PRN Administration Headache/Fever/Mild Pain (1-3) Aspirin 81 mg 02/04/20 09:00 02/08/20 08:38 Aspirin Chewable PO 81 mg DAILY TRACI Administration Atorvastatin Calcium 20 mg 02/03/20 21:00 02/07/20 20:35 Lipitor PO 20 mg HS TRACI Administration Enoxaparin Sodium 40 mg 02/03/20 21:00 02/07/20 20:35 Lovenox SC 40 mg 2100 TRACI Administration Famotidine 20 mg 02/03/20 21:00 02/08/20 08:38 Pepcid SLOW IVP 20 mg Q12HR TRACI Administration Famotidine 20 mg 02/03/20 21:00 02/08/20 08:38 Pepcid PO 20 mg BID TRACI Administration Ceftriaxone Sodium 1 gm/ 100 mls @ 200 mls/hr 02/04/20 08:00 02/08/20 08:39 Sodium Chloride IVPB 100 mls Q24HR TRACI Administration Insulin Glargine 20 units/ 0.2 mls @ 0 mls/hr 02/03/20 21:00 02/07/20 20:43 Miscellaneous Medication SC 0.2 mls HS TRACI Administration Insulin Glargine 20 units/ 0.2 mls @ 0 mls/hr 02/04/20 09:00 02/07/20 12:20 Miscellaneous Medication SC 0.2 mls QAM TRACI Administration Insulin Human Lispro 0 units 02/03/20 12:12 02/07/20 12:41 Humalog SC 2 unit .MODERATE SLIDING SC PRN Administration Moderate Correctional Scale Insulin Human Lispro 0 units 02/03/20 12:12 02/06/20 21:00 Humalog SC 2 unit .BEDTIME SLIDING SC PRN Administration Bedtime Correctional Scale Lisinopril 2.5 mg 02/04/20 09:00 02/08/20 08:37 Zestril PO 2.5 mg QAM TRACI Administration Lorazepam 0.5 mg 02/03/20 17:59 02/04/20 15:07 Ativan SLOW IVP 0.5 mg Q6H PRN Administration Anxiety/Agitation Metoprolol Tartrate 25 mg 02/03/20 21:00 02/08/20 08:38 Lopressor PO 25 mg BID TRACI Administration Senna/Docusate Sodium 2 tab 02/03/20 12:07 02/07/20 20:44 Senokot S PO 2 tab BIDPRN PRN Administration Constipation Silodosin 8 mg 02/03/20 21:00 02/07/20 20:37 Rapaflo PO 8 mg HS TRACI Administration - Exam General - other findings: Obese Eye: anicteric sclera ENT: moist mucosa Neck: supple Heart: RRR Respiratory: CTAB Gastrointestinal: soft, non-tender Extremities: no edema Skin: no rashes Psychiatric: normal affect, normal behavior Hosp A/P - Plan -Assessment (1) UTI (urinary tract infection) Status: Acute (2) DM type 2 (diabetes mellitus, type 2) Status: Chronic (3) BPH (benign prostatic hyperplasia) Code(s): N40.0 - BENIGN PROSTATIC HYPERPLASIA WITHOUT LOWER URINRY TRACT SYMP Status: Chronic (4) Hypertension Code(s): I10 - ESSENTIAL (PRIMARY) HYPERTENSION Status: Chronic (5) Sepsis Code(s): A41.9 - SEPSIS, UNSPECIFIED ORGANISM Status: Resolved - Plan * Continue ceftriaxone for Klebsiella urinary tract infection. Change to ciprofloxacin time of discharge. * BPH-stable * HTN-stable * DM-controlled * Disposition: Patient awaiting approval for intermediate facility.
[2020-02-08] MEDS: Insulin Glargine 20 UNITS in Pre-Filled Syringe 1 EACH SC SCH ×2 (12:00→20:11)
[2020-02-08] MEDS: Atorvastatin Calcium 20 MG TAB PO SCH (20:10)
[2020-02-08] MEDS: Enoxaparin Sodium 40 MG/0.4 ML SYRINGE SC SCH (20:11)
[2020-02-08] MEDS: Silodosin 8 MG CAP PO SCH (20:12)
[2020-02-08] MEDS: Acetaminophen 325 MG TAB PO PRN (20:13)
[2020-02-08] MEDS: HumaLOG 300 UNITS/3 ML VIAL SC PRN (20:13)
[2020-02-09] MEDS: HumaLOG 300 UNITS/3 ML VIAL SC PRN (05:08)
[2020-02-09] MEDS: cefTRIAXone\\ROCEPHIN 1 GM in Sodium Chloride 0.9% 100 ML IVPB SCH (08:01)
[2020-02-09] MEDS: Aspirin Chewable 81 MG TAB PO SCH (08:03)
[2020-02-09] MEDS: Metoprolol Tartrate 25 MG TAB PO SCH (08:03)
[2020-02-09] MEDS: Insulin Glargine 20 UNITS in Pre-Filled Syringe 1 EACH SC SCH (08:04)
[2020-02-09] MEDS: Lisinopril 2.5 MG TAB PO SCH (08:04)
[2020-02-09] MEDS: Famotidine/PF 20 mg/2ml Vial SLOW IVP SCH (10:04)
[2020-02-09 11:38] VITALS: BP 99/65; TEMP 98.1
--- NOTE | 2020-02-10 00:09 | DIS ---
DATE OF ADMISSION: 02/03/2020 DATE OF DISCHARGE: 02/09/2020 PRIMARY CARE PROVIDER: Pato Mayes MD DISCHARGE DIAGNOSES: 1. Sepsis. 2. Urinary tract infection. 3. Hyponatremia. 4. Hypokalemia. 5. COVID-19 test negative. CONDITION OF PATIENT ON THE DAY OF DISCHARGE: Stable. I assessed Mr. Saavedra on the day of discharge. He denies any chest pain or shortness of breath. Vital signs are stable. S1 and S2 are heard, regular. Lungs are clear to auscultation bilaterally. CONSULTATIONS DURING THIS HOSPITALIZATION: Urology, Dr. Souza. HOSPITAL COURSE: Mr. Saavedra is a pleasant 84-year-old gentleman, who was admitted to [facility] on February 03, 2020, for sepsis secondary to urinary tract infection. He was seen by Urology Service. CT scan of abdomen and pelvis showed mild increase in perinephric stranding. He had subtle density in the gallbladder fundus, also seen on prior imaging. Urologist felt that this his presentation was likely secondary to prostatitis. Urine and both blood cultures grew Klebsiella pneumoniae that was of intermediate sensitivity to nitrofurantoin and resistant to Bactrim but was otherwise sensitive to amikacin, ampicillin/sulbactam, cefepime, cefoxitin, ceftazidime, ceftriaxone, ciprofloxacin, gentamicin, levofloxacin, meropenem, Zosyn, and tobramycin. He is being discharged home on ciprofloxacin 500 mg 2 times a day for nine more days. FOLLOWUP: Post acute care followup: With primary care provider in 3 days and with Urology Service in 3 to 4 weeks. DIET: Heart healthy and diabetic. ACTIVITY: As tolerated. DISCHARGE DESTINATION: Home with home health for fci and physical therapy. TIME SPENT: Total amount of time spent coordinating this discharge: Thirty-two minutes. Job ID: [id number]
== END 2020-02-09 12:43 | disposition home health service (06) | DRG 872 ==
LOC: ERS 07:20 → T4-A 09:10
PROVIDERS: ADMIT Internal Medicine; ATTEND Internal Medicine
DX: A41.59 Other Gram-negative sepsis (principal); N39.0 Urinary tract infection, site not specified; E87.1 Hypo-osmolality and hyponatremia; Z16.29 Resistance to other single specified antibiotic; Z20.828 Contact with and (suspected) exposure to other viral communicable diseases; E87.6 Hypokalemia; N41.9 Inflammatory disease of prostate, unspecified; E11.9 Type 2 diabetes mellitus without complications; E78.5 Hyperlipidemia, unspecified; E78.00 Pure hypercholesterolemia, unspecified; N40.1 Benign prostatic hyperplasia with lower urinary tract symptoms; R35.0 Frequency of micturition; E66.9 Obesity, unspecified; Z68.39 Body mass index [BMI] 39.0-39.9, adult; Z79.899 Other long term (current) drug therapy; Z79.4 Long term (current) use of insulin; Z79.82 Long term (current) use of aspirin; Z85.46 Personal history of malignant neoplasm of prostate
CPT/HCPCS: 36415; 36416; 36600; 71045; 74178; 80048; 80053; 81003; 81015; 83605; 85025; 87040; 87077; 87086; 87149; 87186; 87635; 93005; 96365; 96366; 96375; J0696; J1580; J1630; J1650; J1815; J2060; J3370; J3490; Q9967; S0028; U0003

== ENCOUNTER 2021-04-12 13:36 | Emergency (ER) | payer MEDICARE, BC ==
[2021-04-12 15:00] LABS: #Eosinphils 0.2 thou/uL (0.0-0.7); #Monocytes 1.3 thou/uL (0.11-0.59); #Neutrophils 10.6 thou/uL (1.40-6.50); %Basophils 0.2 % (0.0-1.0); %Eosinophils 1.6 % (0.0-10.0); %Monocytes 8.8 % (0.0-10.0); %Neutrophils 69.4 % (42.0-75.0); Hemoglobin 15.2 g/dL (14.0-18.0); Mean Corpuscular HGB CONC 33.4 g/dL (32.0-36.0); Mean Corpuscular Hemoglobin 31.8 pg (27.0-31.0); Mean Corpuscular Volume 95.3 fL (78.0-98.0); Mean Platelet Volume 7.3 fL (7.4-10.4); Platelet Count 185 thou/uL (130-400); RBC Distribution Width 12.2 % (11.5-14.5); Red Blood Cell (RBC) Count 4.79 mill/uL (4.70-6.10); White Blood Cell (WBC) Count 15.2 thou/uL (4.8-10.8)
[2021-04-12 15:22] LABS: ALT (SGPT) 21 U/L (8-55); AST (SGOT) 19 U/L (5-34); Albumin 3.8 g/dL (3.4-4.8); Alkaline Phosphatase 69 U/L (40-110); Anion Gap 14 mmol/L (10-20); BUN (Urea Nitrogen) 27 mg/dL (8.4-25.7); Bilirubin, Total 0.7 mg/dL (0.2-1.2); Calc. Creatinine Clearance 0 mL/min (70-130); Calcium 9.7 mg/dL (7.8-10.44); Carbon Dioxide 25 mmol/L (23-31); Chloride 99 mmol/L (98-107); Globulin 3.3 g/dL (2.4-3.5); Glucose 178 mg/dL (83-110); Protein, Total 7.1 g/dL (5.8-8.1); Sodium 134 mmol/L (136-145)
[2021-04-12 15:58] LABS: Bilirubin Negative (Negative); Blood, Urine Trace (Negative); Clarity Turbid (Clear); Glucose, Urine (Dipstick) Normal (Negative); Ketone, Urine Negative (Negative); Leukocyte 250 Leu/uL (Negative); Nitrite Negative (Negative); Protein, Urine (Dipstick) 50 mg/dL (Neg-Trace); RBC/HPF 0-3 HPF (0-3); Specific Gravity, Urine 1.023 (1.002-1.036); Squamous Epithelial 0-3 HPF (0-3); Urobilinogen Normal mg/dL (Less than 2); pH, Urine 5.5 (5.0-9.0)
[2021-04-12 16:16] LABS: Bacteria/HPF Rare-Few HPF (None Seen)
== END 2021-04-12 17:35 | disposition home or self-care (01) ==
LOC: ERS 13:36
DX: N39.0 Urinary tract infection, site not specified (principal); G89.29 Other chronic pain; M54.50 Low back pain, unspecified; M25.551 Pain in right hip; R29.6 Repeated falls; N40.0 Benign prostatic hyperplasia without lower urinary tract symptoms; E11.9 Type 2 diabetes mellitus without complications; E78.5 Hyperlipidemia, unspecified; E78.00 Pure hypercholesterolemia, unspecified; I10 Essential (primary) hypertension; W19.XXXA Unspecified fall, initial encounter
CPT/HCPCS: 36415; 70450; 72100; 72125; 80053; 81003; 81015; 84484; 85025; 87086; 93005